=== PATIENT | male | born 1955 | race Caucasian/White ===

== ENCOUNTER 2016-11-27 15:08 | Inpatient (IN) | payer OTHER ==
[~2016-11-27] VITALS: Ht 193 cm; Wt 103.0 kg
[~2016-11-27 15:08] MED LIST: BISA-57 PO; BISA5TAB6 PO; CHOL2000 PO; CLON-412 PO; CLON1TAB3 PO; DICL50TA2 PO; DOXA2TAB61 PO; INSU100I14 SQ; INSU100V19 SQ; LEVO100T87 PO; METH-378 PO; PENT400T2 PO; SIMV20TA PO; SSD1C20 TOP; ZOLP10TA PO
[2016-11-27 16:57] VITALS: Ht 193 cm; Wt 103.0 kg
[2016-11-27] MEDS ORDERED: DEXTROSE 50% 50 ML SYRINGE IV PRN ×2 (19:00)
[2016-11-27] MEDS ORDERED: MAGNESIUM HYDROXIDE 30ML CUP PO PRN (19:00)
[2016-11-27] MEDS ORDERED: NACL 0.9% 3 ML SYG IV SCH (19:00)
[2016-11-27] MEDS ORDERED: BISACODYL (EC) 5 MG TAB PO PRN (19:00)
[2016-11-27] MEDS ORDERED: clonAZEPAM 0.5 MG TAB PO PRN (19:00)
[2016-11-27] MEDS ORDERED: DOCUSATE SODIUM 100 MG CAP PO PRN (19:00)
[2016-11-27] MEDS ORDERED: ACETAMINOPHEN 325 MG TAB PO PRN (19:00)
[2016-11-27] MEDS ORDERED: GLUCOSE GEL 15 GRAM TUBE PO PRN ×2 (19:00)
[2016-11-27] MEDS ORDERED: GLUCAGON 1 MG INJ IM PRN (19:00)
[2016-11-27] MEDS ORDERED: GLUCOSE GEL 15 GRAM TUBE BUCCAL PRN (19:00)
--- NOTE | 2016-11-27 19:02 | HP ---
Date/Time of Note Date/Time of Note DATE: 11/27/16 TIME: 18:59 Assessment/Plan VTE Prophylaxis VTE Prophylaxis Intervention: SCD's Assessment/Plan Assessment/Plan 61 yo M with poorly controlled DM2, suspect PVD admitted for R TMA stump wound, concern for abscess v cellulitis PLAN empiric SSTI abx with vanc/ancef imaging of foot to eval for abscess podiatry to see tomorrow, likely I and D cont home insulin cont home pain meds DVT prophx HPI/ROS Admit Date/Time Admit Date/Time Nov 27, 2016 at 15:47 Hx of Present Illness 61 yo M with pmhx PVD, DM2 with poor control, chronic pain directly admitted from wound care clinic for concern about R TMA site infection. Pt states that since his TMA last year he's been noticing occ drainage from a small "hole" at his surgical site. For the past week however he's been having more pain and swelling from his TMA site. Pt went to wound clinic today and open winder was alarmed by degree of erythema thus patient was admitted. 10pROS neg except as per HPI PMH/Family/Social Past Medical History as per HPI also sp L BKA Social History wheelchair bound Smoking Status: Current some day smoker Exam/Review of Systems Exam Exam nad ,pleasnt MMM EOMI rrr no mrg lungs clear abd soft L BKA site with well healed stump R TMA: surgical incision site well healed but on inferior surface there is a 4 cm area of induration and fluctuance with a tiny aperture, adjacent to this is a second area of induration ~2cm in diameter. Mild erythema noted to sup stump with some streaking up to ankle Medications Medications Current Medications Acetaminophen (Tylenol Tab) 650 mg Q6H PRN PO PAIN LEVEL 1-3 OR FEVER; Start at 19:00 Acetaminophen/ Hydrocodone Bitart ([place] (5/325)) 1 tab Q6H PRN PO MODERATE PAIN LEVEL 4-6; Start 11/27/16 at 19:00 Docusate Sodium (Colace) 100 mg Q12H PRN PO CONSTIPATION; Start 11/27/16 at 19: 00 Magnesium Hydroxide (Milk Of Mag) 30 ml DAILY PRN PO CONSTIPATION; Start at 19:00 Enoxaparin Sodium (Lovenox) 40 mg DAILY SC ; Start 11/28/16 at 09:00 Bisacodyl (Dulcolax) 5 mg DAILY PO ; Start 11/28/16 at 09:00 Bisacodyl (Dulcolax) 10 mg DAILY PRN PO CONSTIPATION; Start 11/27/16 at 19:00 Cholecalciferol (Vitamin D) 2,000 unit DAILY PO ; Start 11/28/16 at 09:00 Clonazepam (Klonopin) 1 mg Q8H PRN PO ANXIETY; Start 11/27/16 at 19:00 Clonazepam (Klonopin) 1 mg TID PO ; Start 11/27/16 at 21:00 Doxazosin Mesylate (Cardura) 2 mg DAILY PO ; Start 11/28/16 at 09:00 Levothyroxine Sodium (Synthroid) 100 mcg DAILY@06 PO ; Start 11/28/16 at 06:00 Methadone HCl (Methadone) 10 mg QID PO ; Start 11/27/16 at 21:00 Pentoxifylline (Trental) 400 mg TID PO ; Start 11/27/16 at 21:00 Silver Sulfadiazine (Thermazene 1% 25 Gm) 1 applic BID TOP ; Start 11/27/16 at 21:00 Zolpidem Tartrate (Ambien) 10 mg HS PRN PO insominia; Start 11/27/16 at 19:00 Atorvastatin Calcium (Lipitor) 10 mg DAILY PO ; Start 11/28/16 at 09:00 Insulin Glargine (Lantus) 45 unit HS SC ; Start 11/27/16 at 21:00 Diagnostic Test (Pha) (Accu-Chek) 1 ea 02 XX ; Start 11/28/16 at 02:00 Miscellaneous Information 1 ea NOTE XX ; Start 11/27/16 at 19:00 Glucose (Glutose) 15 gm Q15M PRN PO DECREASED GLUCOSE; Start 11/27/16 at 19:00 Glucose (Glutose) 22.5 gm Q15M PRN PO DECREASED GLUCOSE; Start 11/27/16 at 19: 00 Dextrose (D50w Syringe) 25 ml Q15M PRN IV DECREASED GLUCOSE; Start 11/27/16 at 19:00 Dextrose (D50w Syringe) 50 ml Q15M PRN IV DECREASED GLUCOSE; Start 11/27/16 at 19:00 Glucagon (Glucagen) 1 mg Q15M PRN IM DECREASED GLUCOSE; Start 11/27/16 at 19:00 Glucose (Glutose) 15 gm Q15M PRN BUCCAL DECREASED GLUCOSE; Start 11/27/16 at 19 :00 MICHAEL SMITH MD Nov 27, 2016 19:02
[2016-11-27] MEDS ORDERED: VANCOMYCIN IV PER PHARMACY XX SCH (19:30)
[2016-11-27 20:06] LABS: CREATININE 0.85 mg/dl (0.61-1.24)
[2016-11-27 20:41] VITALS: BP 137/63; RESP 18
--- NOTE | 2016-11-27 20:58 | RADRPT ---
PROCEDURE: XR Right Foot. CLINICAL INDICATION: Right foot pain. TECHNIQUE: Three views. Frontal, lateral, and oblique. COMPARISON: 07/27/2015. FINDINGS: As seen previously, there has been amputation through the proximal metatarsals. There is no fractur e or dislocation. There is diffuse osteopenia. The soft tissues are normal. Articular surfaces are intact. There is no lytic or blastic lesion. There is no radiopaque foreign body. IMPRESSION: 1. Previous transmetatarsal amputation. 2. Diffuse osteopenia. 3. No lytic lesion to suggest osteomyelitis. RPTAT: QQ .Rigo Patel MD, MD Date Time Electronically viewed and signed by .Rigo Patel MD, MD on 11/27/2016 20:58 .R/
[2016-11-27] MEDS ORDERED: INSULIN GLARGINE [LANtus] 3 ML PEN SC SCH (21:00)
[2016-11-27] MEDS: CEFAZOLIN 1 GM/50 ML (PMX) 50 ML IVPB SCH (21:16)
[2016-11-27] MEDS: clonAZEPAM 0.5 MG TAB PO SCH (21:16)
[2016-11-27] MEDS: METHADONE 10 MG TAB PO SCH (21:17)
[2016-11-27] MEDS: SILVER SULFADIAZINE 1% 25 GM CR TOP SCH (21:17)
[2016-11-27] MEDS: PENTOXIFYLLINE (SR) 400 MG TAB PO SCH (21:17)
[2016-11-27] MEDS: INSULIN GLARGINE [LANtus] 3 ML PEN SC SCH (21:21)
[2016-11-27] MEDS: INSULIN ASPART [NOVOLOG] 3 ML PEN SC SCH (21:22)
[2016-11-27] MEDS: ZOLPIDEM 5 MG TAB PO PRN (21:27)
[2016-11-27] MEDS ORDERED: VANCOMYCIN 2 GM in SOD CHLORIDE 0.9% 500 ML IVPB ONE (22:00)
[2016-11-28] MEDS: ACCU-CHEK XX SCH (02:00)
[2016-11-28 05:15] LABS: ADD SCAN DIFF NO
[2016-11-28 05:16] LABS: BASOPHILS % 0.1 % (0.0-2.0); EOSINOPHILS # 0.1 10^3/ul (0.0-0.5); EOSINOPHILS % 0.6 % (0.0-7.0); HEMATOCRIT 30.3 % (42.0-52.0); HEMOGLOBIN 10.4 g/dl (14.0-18.0); LYMPHOCYTES # 1.5 10^3/ul (0.8-2.9); MEAN CORPUSCULAR HEMOGLOBIN 29.1 pg (29.0-33.0); MEAN CORPUSCULAR HGB CONC 34.3 g/dl (32.0-37.0); MEAN CORPUSCULAR VOLUME 84.9 fl (82.0-101.0); MEAN PLATELET VOLUME 10.3 fl (7.4-10.4); MONOCYTE # 0.8 10^3/ul (0.3-0.9); MONOCYTES % 10.1 % (0.0-11.0); NEUTROPHIL # 5.8 10^3/ul (1.6-7.5); NEUTROPHILS % 70.7 % (39.0-77.0); PLATELET COUNT 186 10^3/UL (140-415); RED BLOOD COUNT 3.57 10^6/ul (4.70-6.10); RED CELL DISTRIBUTION WIDTH 13.9 % (11.5-14.5); WHITE BLOOD COUNT 8.2 10^3/ul (4.8-10.8)
[2016-11-28] MEDS: LEVOTHYROXINE 100 MCG TAB PO SCH (05:40)
[2016-11-28] MEDS: CEFAZOLIN 1 GM/50 ML (PMX) 50 ML IVPB SCH ×3 (05:41→22:39)
[2016-11-28 05:57] LABS: CREATININE 0.85 mg/dl (0.61-1.24); POTASSIUM 3.8 mmol/L (3.5-5.1)
[2016-11-28 08:00] VITALS: BP 133/62; RESP 20
[2016-11-28] MEDS: INSULIN ASPART [NOVOLOG] 3 ML PEN SC SCH ×4 (08:00→22:51)
[2016-11-28] MEDS: DOXAZOSIN 2 MG TAB PO SCH (08:45)
[2016-11-28] MEDS: clonAZEPAM 0.5 MG TAB PO SCH ×3 (08:47→21:53)
[2016-11-28] MEDS: ATORVASTATIN 10 MG TAB PO SCH (08:47)
[2016-11-28] MEDS: BISACODYL (EC) 5 MG TAB PO SCH (08:47)
[2016-11-28] MEDS: METHADONE 10 MG TAB PO SCH ×4 (08:47→22:44)
[2016-11-28] MEDS: SILVER SULFADIAZINE 1% 25 GM CR TOP SCH ×2 (08:48→22:40)
[2016-11-28] MEDS: CHOLECALCIFEROL 2,000 UNIT CAP PO SCH (08:48)
[2016-11-28] MEDS: PENTOXIFYLLINE (SR) 400 MG TAB PO SCH ×3 (08:48→22:51)
[2016-11-28] MEDS: ENOXAPARIN 40 MG/0.4 ML SYG SC SCH (08:51)
[2016-11-28] MEDS: VANCOMYCIN 1.5 GM in SOD CHLORIDE 0.9% 250 ML IVPB SCH (09:33)
[2016-11-28] MEDS: ZOLPIDEM 5 MG TAB PO PRN (21:53)
--- NOTE | 2016-11-28 22:18 | PN ---
Date/Time of Note Date/Time of Note DATE: 11/28/16 TIME: 22:15 Assessment/Plan VTE Prophylaxis VTE Prophylaxis Intervention: LMWH Lines/Catheters IV Catheter Type (from Nrs): Saline Lock Urinary Cath still in place: No Assessment/Plan Assessment/Plan 1. Right TMA stump infection concerned about celllultis vs abscess 2. PVD 3.Type II DM Plan L IV abx ancef/vancomycin Podiatry to see pt cont home insulin including lantus cont home pain meds DVT prophx with lovenox will follow up Subjective 24 Hr Interval Summary Free Text/Dictation pain controlled, Podiatry consulted on case Exam/Review of Systems Vital Signs Vitals Vital Signs Date Time Temp Pulse Resp B/P Pulse Ox O2 Delivery O2 Flow Rate FiO2 11/28/16 08:00 97.8 20 133/62 98 11/27/16 20:41 84 Intake and Output 11/27/16 11/27/16 11/28/16 15:00 23:00 07:00 Intake Total 50 ml 1310 ml Output Total 1300 ml Balance 50 ml 10 ml Exam nad ,pleasnt MMM EOMI rrr no mrg lungs clear abd soft L BKA site with well healed stump R TMA: surgical incision site well healed but on inferior surface there is a 4 cm area of induration and fluctuance with a tiny aperture, adjacent to this is a second area of induration ~2cm in diameter. Mild erythema noted to sup stump with some streaking up to ankle Results Result Diagram: 11/28/16 0445 11/28/16 0445 Results 24 hrs Laboratory Tests Test 11/28/16 02:12 11/28/16 04:45 11/28/16 08:41 11/28/16 12:01 Bedside Glucose 200 99 206 White Blood Count 8.2 # Red Blood Count 3.57 L Hemoglobin 10.4 L Hematocrit 30.3 L Mean Corpuscular Volume 84.9 Mean Corpuscular Hemoglobin 29.1 Mean Corpuscular Hemoglobin Concent 34.3 Red Cell Distribution Width 13.9 Platelet Count 186 Mean Platelet Volume 10.3 # Neutrophils % 70.7 Lymphocytes % 18.0 Monocytes % 10.1 Eosinophils % 0.6 Basophils % 0.1 Nucleated Red Blood Cells % 0.0 Neutrophils # 5.8 Lymphocytes # 1.5 Monocytes # 0.8 Eosinophils # 0.1 Basophils # 0.0 Nucleated Red Blood Cells # 0.0 Sodium Level 140 Potassium Level 3.8 Chloride Level 105 Carbon Dioxide Level 26 Anion Gap 13 Blood Urea Nitrogen 16 Creatinine 0.85 Glucose Level 140 Calcium Level 9.0 Test 11/28/16 17:34 Bedside Glucose 274 H Medications Medications Current Medications Acetaminophen (Tylenol Tab) 650 mg Q6H PRN PO PAIN LEVEL 1-3 OR FEVER; Start at 19:00 Acetaminophen/ Hydrocodone Bitart ([place] (5/325)) 1 tab Q6H PRN PO MODERATE PAIN LEVEL 4-6; Start 11/27/16 at 19:00 Docusate Sodium (Colace) 100 mg Q12H PRN PO CONSTIPATION; Start 11/27/16 at 19: 00 Magnesium Hydroxide (Milk Of Mag) 30 ml DAILY PRN PO CONSTIPATION; Start at 19:00 Enoxaparin Sodium (Lovenox) 40 mg DAILY SC Last administered on 11/28/16 08:51 ; Admin Dose 40 MG; Start 11/28/16 at 09:00 Bisacodyl (Dulcolax) 5 mg DAILY PO ; Start 11/28/16 at 09:00 Bisacodyl (Dulcolax) 10 mg DAILY PRN PO CONSTIPATION; Start 11/27/16 at 19:00 Cholecalciferol (Vitamin D) 2,000 unit DAILY PO Last administered on 11/28/16 08:48; Admin Dose 2,000 UNIT; Start 11/28/16 at 09:00 Clonazepam (Klonopin) 1 mg Q8H PRN PO ANXIETY Last administered on 11/27/16 22 :59; Admin Dose 1 MG; Start 11/27/16 at 19:00 Clonazepam (Klonopin) 1 mg TID PO Last administered on 11/28/16 21:53; Admin Dose 1 MG; Start 11/27/16 at 21:00 Doxazosin Mesylate (Cardura) 2 mg DAILY PO Last administered on 11/28/16 08:45 ; Admin Dose 2 MG; Start 11/28/16 at 09:00 Levothyroxine Sodium (Synthroid) 100 mcg DAILY@06 PO Last administered on 05:40; Admin Dose 100 MCG; Start 11/28/16 at 06:00 Methadone HCl (Methadone) 10 mg QID PO Last administered on 11/28/16 17:36; Admin Dose 10 MG; Start 11/27/16 at 21:00 Pentoxifylline (Trental) 400 mg TID PO Last administered on 11/28/16 12:11; Admin Dose 400 MG; Start 11/27/16 at 21:00 Silver Sulfadiazine (Thermazene 1% 25 Gm) 1 applic BID TOP Last administered on 11/27/16 21:17; Admin Dose 1 APPLIC; Start 11/27/16 at 21:00 Zolpidem Tartrate (Ambien) 10 mg HS PRN PO insominia Last administered on 21:53; Admin Dose 10 MG; Start 11/27/16 at 19:00 Atorvastatin Calcium (Lipitor) 10 mg DAILY PO Last administered on 11/28/16 08 :47; Admin Dose 10 MG; Start 11/28/16 at 09:00 Insulin Glargine (Lantus) 45 unit HS SC Last administered on 11/27/16 21:21; Admin Dose 45 UNIT; Start 11/27/16 at 21:00 Diagnostic Test (Pha) (Accu-Chek) 1 ea 02 XX ; Start 11/28/16 at 02:00 Miscellaneous Information 1 ea NOTE XX ; Start 11/27/16 at 19:00 Glucose (Glutose) 15 gm Q15M PRN PO DECREASED GLUCOSE; Start 11/27/16 at 19:00 Glucose (Glutose) 22.5 gm Q15M PRN PO DECREASED GLUCOSE; Start 11/27/16 at 19: 00 Dextrose (D50w Syringe) 25 ml Q15M PRN IV DECREASED GLUCOSE; Start 11/27/16 at 19:00 Dextrose (D50w Syringe) 50 ml Q15M PRN IV DECREASED GLUCOSE; Start 11/27/16 at 19:00 Glucagon (Glucagen) 1 mg Q15M PRN IM DECREASED GLUCOSE; Start 11/27/16 at 19:00 Glucose 15 gm 15 gm Q15M PRN BUCCAL DECREASED GLUCOSE; Start 11/27/16 at 19:00 Cefazolin Sodium 50 ml @ 100 mls/hr Q8 IVPB Last administered on 11/28/16 14: 16; Admin Dose 100 MLS/HR; Start 11/27/16 at 20:00 Vancomycin HCl/ Sodium Chloride (Vancocin/NS) 250 ml @ 83.333 mls/ hr Q12H IVPB Last administered on 11/28/16t 09:33; Admin Dose 83.333 MLS/HR; Start at 10:00 Miscellaneous Information (*Rx Drug Level Order Reminder*) 1 ONCE ONCE XX ; Start 11/29/16 at 09:00; Stop 11/29/16 at 09:01 RANJEET MONAE MD Nov 28, 2016 22:18
[2016-11-28] MEDS: INSULIN GLARGINE [LANtus] 3 ML PEN SC SCH (22:42)
[2016-11-28 22:52] VITALS: BP 149/71; RESP 18
--- NOTE | 2016-11-28 22:52 | CONS ---
Date/Time of Note Date/Time of Note DATE: 11/28/16 TIME: 22:52 Assessment/Plan Assessment/Plan Problems: (1) Cellulitis Status: Acute (2) Pain of right leg Status: Acute (3) Non-pressure chronic ulcer of other part of right foot with fat layer exposed (4) Abscess of right foot (5) Status post below knee amputation of left lower extremity (6) Wheelchair bound (7) Acquired absence of right foot Additional Assessment/Plan 1. Continue IVAbx 2. Dressing change daily 3. Non weightbearing right foot 4. Patient will be monitored 5. May require incision and drainage Prognosis guarded; close monitoring Consultation Date/Type/Reason Admit Date/Time Nov 27, 2016 at 15:47 Date of Consultation: Nov 28, 2016 Type of Consultation: Foot and ankle surgery Reason for Consultation Right foot abscess with cellulitis Hx of Present Illness This is a pleasant 61 yo male patient with multiple medical problems including PVD, DM2 with poor control, chronic pain, s/p TMA of right foot, s/p BKA of the left foot, severe b/l knee contractures who is seen regularly at the [facility] for chronic open wound of his right foot. He presented to clinic with redness, pain, swelling and new open wound of his right foot. He was evaluated and was found to have infection of his right foot with abscess and cellulitis. Recommendation was made for patient to be admitted to the hospital for IVABx and possible surgery. Patient reports that he has been having increase in his pain for the last week. Patient denies fever and chills today. Patient is currently on IVAbx and reports feeling better since his admission. Constitutional: improved, no complaints Eyes: no complaints ENT: no complaints Respiratory: no complaints Cardiovascular: no complaints Gastrointestinal: no complaints Genitourinary: no complaints Skin: other (contracted lower extremity bilaterally; wheelchair bound) Past Medical History as per hpi Past Surgical History as per hpi Social History as per hpi Smoking Status: Current some day smoker Exam/Review of Systems Vital Signs Vitals Vital Signs Date Time Temp Pulse Resp B/P Pulse Ox O2 Delivery O2 Flow Rate FiO2 11/28/16 08:00 97.8 20 133/62 98 11/27/16 20:41 84 Intake and Output 11/27/16 11/27/16 11/28/16 15:00 23:00 07:00 Intake Total 50 ml 1310 ml Output Total 1300 ml Balance 50 ml 10 ml Exam GENERAL: patient is in no acute distress, laying supine in bed; contracted at the knees and hips VASC: DP and PT pulses weak right foot; s/p TMA of the right foot and BKA of the left LE NEURO: sensation is decreased to sharp, dull, vibratory and temperature stimuli ; abnormal DTRs noted right LE DERM: open wound plantar right foot with surrounding erythema and fluctuance; purulent drainage noted; there is malodor; there is tenderness to palpation; there proximal streaking noted to the ankle level ORTHO: s/p TMA of right foot; s/p BKA of the LLE; TTP right foot Labs reviewed Imaging reviewed Results Result Diagram: 11/28/16 0445 11/28/16 0445 Results 24 hrs Laboratory Tests Test 11/28/16 02:12 11/28/16 04:45 11/28/16 08:41 11/28/16 12:01 Bedside Glucose 200 99 206 White Blood Count 8.2 # Red Blood Count 3.57 L Hemoglobin 10.4 L Hematocrit 30.3 L Mean Corpuscular Volume 84.9 Mean Corpuscular Hemoglobin 29.1 Mean Corpuscular Hemoglobin Concent 34.3 Red Cell Distribution Width 13.9 Platelet Count 186 Mean Platelet Volume 10.3 # Neutrophils % 70.7 Lymphocytes % 18.0 Monocytes % 10.1 Eosinophils % 0.6 Basophils % 0.1 Nucleated Red Blood Cells % 0.0 Neutrophils # 5.8 Lymphocytes # 1.5 Monocytes # 0.8 Eosinophils # 0.1 Basophils # 0.0 Nucleated Red Blood Cells # 0.0 Sodium Level 140 Potassium Level 3.8 Chloride Level 105 Carbon Dioxide Level 26 Anion Gap 13 Blood Urea Nitrogen 16 Creatinine 0.85 Glucose Level 140 Calcium Level 9.0 Test 11/28/16 17:34 11/28/16 22:29 Bedside Glucose 274 H 317 H Medications Medications Current Medications Acetaminophen (Tylenol Tab) 650 mg Q6H PRN PO PAIN LEVEL 1-3 OR FEVER; Start at 19:00 Acetaminophen/ Hydrocodone Bitart ([place] (5/325)) 1 tab Q6H PRN PO MODERATE PAIN LEVEL 4-6; Start 11/27/16 at 19:00 Docusate Sodium (Colace) 100 mg Q12H PRN PO CONSTIPATION; Start 11/27/16 at 19: 00 Magnesium Hydroxide (Milk Of Mag) 30 ml DAILY PRN PO CONSTIPATION; Start at 19:00 Enoxaparin Sodium (Lovenox) 40 mg DAILY SC Last administered on 11/28/16 08:51 ; Admin Dose 40 MG; Start 11/28/16 at 09:00 Bisacodyl (Dulcolax) 5 mg DAILY PO ; Start 11/28/16 at 09:00 Bisacodyl (Dulcolax) 10 mg DAILY PRN PO CONSTIPATION; Start 11/27/16 at 19:00 Cholecalciferol (Vitamin D) 2,000 unit DAILY PO Last administered on 11/28/16 08:48; Admin Dose 2,000 UNIT; Start 11/28/16 at 09:00 Clonazepam (Klonopin) 1 mg Q8H PRN PO ANXIETY Last administered on 11/27/16 22 :59; Admin Dose 1 MG; Start 11/27/16 at 19:00 Clonazepam (Klonopin) 1 mg TID PO Last administered on 11/28/16 21:53; Admin Dose 1 MG; Start 11/27/16 at 21:00 Doxazosin Mesylate (Cardura) 2 mg DAILY PO Last administered on 11/28/16 08:45 ; Admin Dose 2 MG; Start 11/28/16 at 09:00 Levothyroxine Sodium (Synthroid) 100 mcg DAILY@06 PO Last administered on 05:40; Admin Dose 100 MCG; Start 11/28/16 at 06:00 Methadone HCl (Methadone) 10 mg QID PO Last administered on 11/28/16 22:44; Admin Dose 10 MG; Start 11/27/16 at 21:00 Pentoxifylline (Trental) 400 mg TID PO Last administered on 11/28/16 12:11; Admin Dose 400 MG; Start 11/27/16 at 21:00 Silver Sulfadiazine (Thermazene 1% 25 Gm) 1 applic BID TOP Last administered on 11/28/16 22:40; Admin Dose 1 APPLIC; Start 11/27/16 at 21:00 Zolpidem Tartrate (Ambien) 10 mg HS PRN PO insominia Last administered on 6/29/ 17at 21:53; Admin Dose 10 MG; Start 11/27/16 at 19:00 Atorvastatin Calcium (Lipitor) 10 mg DAILY PO Last administered on 11/28/16 08 :47; Admin Dose 10 MG; Start 11/28/16 at 09:00 Insulin Glargine (Lantus) 45 unit HS SC Last administered on 11/28/16 22:42; Admin Dose 45 UNIT; Start 11/27/16 at 21:00 Diagnostic Test (Pha) (Accu-Chek) 1 ea 02 XX ; Start 11/28/16 at 02:00 Miscellaneous Information 1 ea NOTE XX ; Start 11/27/16 at 19:00 Glucose (Glutose) 15 gm Q15M PRN PO DECREASED GLUCOSE; Start 11/27/16 at 19:00 Glucose (Glutose) 22.5 gm Q15M PRN PO DECREASED GLUCOSE; Start 11/27/16 at 19: 00 Dextrose (D50w Syringe) 25 ml Q15M PRN IV DECREASED GLUCOSE; Start 11/27/16 at 19:00 Dextrose (D50w Syringe) 50 ml Q15M PRN IV DECREASED GLUCOSE; Start 11/27/16 at 19:00 Glucagon (Glucagen) 1 mg Q15M PRN IM DECREASED GLUCOSE; Start 11/27/16 at 19:00 Glucose 15 gm 15 gm Q15M PRN BUCCAL DECREASED GLUCOSE; Start 11/27/16 at 19:00 Cefazolin Sodium 50 ml @ 100 mls/hr Q8 IVPB Last administered on 11/28/16 22: 39; Admin Dose 100 MLS/HR; Start 11/27/16 at 20:00 Vancomycin HCl/ Sodium Chloride (Vancocin/NS) 250 ml @ 83.333 mls/ hr Q12H IVPB Last administered on 11/28/16 09:33; Admin Dose 83.333 MLS/HR; Start at 10:00 Miscellaneous Information (*Rx Drug Level Order Reminder*) 1 ONCE ONCE XX ; Start 11/29/16 at 09:00; Stop 11/29/16 at 09:01 GIOVANNA ALEJANDRO DPM Nov 28, 2016 22:52
[2016-11-29] MEDS: VANCOMYCIN 1.5 GM in SOD CHLORIDE 0.9% 250 ML IVPB SCH ×2 (00:09→11:01)
[2016-11-29] MEDS: ACCU-CHEK XX SCH (01:41)
[2016-11-29] MEDS ORDERED: INSULIN ASPART [NOVOLOG] 3 ML PEN SC ONE (02:00)
[2016-11-29] MEDS: CEFAZOLIN 1 GM/50 ML (PMX) 50 ML IVPB SCH ×3 (05:41→21:45)
[2016-11-29] MEDS: LEVOTHYROXINE 100 MCG TAB PO SCH (05:41)
[2016-11-29] MEDS: HYDROCODONE/APAP (5/325) TAB PO PRN (05:45)
[2016-11-29] MEDS: INSULIN ASPART [NOVOLOG] 3 ML PEN SC SCH ×5 (08:00→21:50)
[2016-11-29 08:47] VITALS: BP 120/56; RESP 17
[2016-11-29] MEDS: BISACODYL (EC) 5 MG TAB PO SCH ×2 (09:00→09:05)
[2016-11-29] MEDS: clonAZEPAM 0.5 MG TAB PO SCH ×4 (09:00→21:46)
[2016-11-29] MEDS: CHOLECALCIFEROL 2,000 UNIT CAP PO SCH (09:04)
[2016-11-29] MEDS: DOXAZOSIN 2 MG TAB PO SCH (09:05)
[2016-11-29] MEDS: ATORVASTATIN 10 MG TAB PO SCH (09:05)
[2016-11-29] MEDS: METHADONE 10 MG TAB PO SCH ×4 (09:05→21:47)
[2016-11-29] MEDS: PENTOXIFYLLINE (SR) 400 MG TAB PO SCH ×3 (09:06→21:45)
[2016-11-29] MEDS: ENOXAPARIN 40 MG/0.4 ML SYG SC SCH (09:08)
[2016-11-29] MEDS: SILVER SULFADIAZINE 1% 25 GM CR TOP SCH ×2 (09:09→21:55)
--- NOTE | 2016-11-29 09:25 | PN ---
Date/Time of Note Date/Time of Note DATE: 11/29/16 TIME: 09:23 Assessment/Plan VTE Prophylaxis VTE Prophylaxis Intervention: LMWH Lines/Catheters IV Catheter Type (from Nrsg): Saline Lock Urinary Cath still in place: No Assessment/Plan Assessment/Plan 1. Right TMA stump infection concerned about celllultis vs abscess 2. PVD 3.Type II DM,Insulin dependant 4. Hypoglycemia with BS down to 62 Plan L IV abx ancef/vancomycin Podiatry evaluated pt, plan for I & D As per podiatry cont home insulin including lantus- BS drops to62 today am < will cut down to Lantus to 30 units and Nurse is advised to cut down to mild sliding scale cont home pain meds DVT prophx with lovenox will follow up Subjective 24 Hr Interval Summary Free Text/Dictation BS drops to 62 at 8am, pt asymptomatic, BP stable, pt was given lantus 45 units at night and 4 units Novolog at 2 am Exam/Review of Systems Vital Signs Vitals Vital Signs Date Time Temp Pulse Resp B/P Pulse Ox O2 Delivery O2 Flow Rate FiO2 11/29/16 08:47 98.0 60 17 120/56 95 Intake and Output 11/28/16 11/28/16 11/29/16 15:00 23:00 07:00 Intake Total 300 ml 840 ml 1270 ml Output Total 790 ml 1380 ml Balance 300 ml 50 ml -110 ml Exam nad ,pleasnt MMM EOMI rrr no mrg lungs clear abd soft L BKA site with well healed stump R TMA: surgical incision site well healed but on inferior surface there is a 4 cm area of induration and fluctuance with a tiny aperture, adjacent to this is a second area of induration ~2cm in diameter. Mild erythema noted to sup stump with some streaking up to ankle Results Result Diagram: 11/28/16 0445 11/28/16 0445 Results 24 hrs Laboratory Tests Test 11/28/16 12:01 11/28/16 17:34 11/28/16 22:29 11/29/16 01:43 Bedside Glucose 206 274 H 317 H 268 H Test 11/29/16 08:15 11/29/16 08:31 11/29/16 09:02 Bedside Glucose 62 L 93 161 Medications Medications Current Medications Acetaminophen (Tylenol Tab) 650 mg Q6H PRN PO PAIN LEVEL 1-3 OR FEVER; Start at 19:00 Acetaminophen/ Hydrocodone Bitart ([place] (5/325)) 1 tab Q6H PRN PO MODERATE PAIN LEVEL 4-6 Last administered on 11/29/16 05:45; Admin Dose 1 TAB; Start at 19:00 Docusate Sodium (Colace) 100 mg Q12H PRN PO CONSTIPATION; Start 11/27/16 at 19: 00 Magnesium Hydroxide (Milk Of Mag) 30 ml DAILY PRN PO CONSTIPATION; Start at 19:00 Enoxaparin Sodium (Lovenox) 40 mg DAILY SC Last administered on 11/29/16 09:08 ; Admin Dose 40 MG; Start 11/28/16 at 09:00 Bisacodyl (Dulcolax) 5 mg DAILY PO ; Start 11/28/16 at 09:00 Bisacodyl (Dulcolax) 10 mg DAILY PRN PO CONSTIPATION; Start 11/27/16 at 19:00 Cholecalciferol (Vitamin D) 2,000 unit DAILY PO Last administered on 11/29/16 09:04; Admin Dose 2,000 UNIT; Start 11/28/16 at 09:00 Clonazepam (Klonopin) 1 mg Q8H PRN PO ANXIETY Last administered on 11/27/16 22 :59; Admin Dose 1 MG; Start 11/27/16 at 19:00 Clonazepam (Klonopin) 1 mg TID PO Last administered on 11/28/16 21:53; Admin Dose 1 MG; Start 11/27/16 at 21:00 Doxazosin Mesylate (Cardura) 2 mg DAILY PO Last administered on 11/29/16 09:05 ; Admin Dose 2 MG; Start 11/28/16 at 09:00 Levothyroxine Sodium (Synthroid) 100 mcg DAILY@06 PO Last administered on 05:41; Admin Dose 100 MCG; Start 11/28/16 at 06:00 Methadone HCl (Methadone) 10 mg QID PO Last administered on 11/29/16 09:05; Admin Dose 10 MG; Start 11/27/16 at 21:00 Pentoxifylline (Trental) 400 mg TID PO Last administered on 11/29/16 09:06; Admin Dose 400 MG; Start 11/27/16 at 21:00 Silver Sulfadiazine (Thermazene 1% 25 Gm) 1 applic BID TOP Last administered on 11/29/16 09:09; Admin Dose 1 APPLIC; Start 11/27/16 at 21:00 Zolpidem Tartrate (Ambien) 10 mg HS PRN PO insominia Last administered on 21:53; Admin Dose 10 MG; Start 11/27/16 at 19:00 Atorvastatin Calcium (Lipitor) 10 mg DAILY PO Last administered on 11/29/16 09 :05; Admin Dose 10 MG; Start 11/28/16 at 09:00 Insulin Glargine (Lantus) 45 unit HS SC Last administered on 11/28/16 22:42; Admin Dose 45 UNIT; Start 11/27/16 at 21:00 Diagnostic Test (Pha) (Accu-Chek) 1 ea 02 XX ; Start 11/28/16 at 02:00 Miscellaneous Information 1 ea NOTE XX ; Start 11/27/16 at 19:00 Glucose (Glutose) 15 gm Q15M PRN PO DECREASED GLUCOSE; Start 11/27/16 at 19:00 Glucose (Glutose) 22.5 gm Q15M PRN PO DECREASED GLUCOSE; Start 11/27/16 at 19: 00 Dextrose (D50w Syringe) 25 ml Q15M PRN IV DECREASED GLUCOSE; Start 11/27/16 at 19:00 Dextrose (D50w Syringe) 50 ml Q15M PRN IV DECREASED GLUCOSE; Start 11/27/16 at 19:00 Glucagon (Glucagen) 1 mg Q15M PRN IM DECREASED GLUCOSE; Start 11/27/16 at 19:00 Glucose 15 gm 15 gm Q15M PRN BUCCAL DECREASED GLUCOSE; Start 11/27/16 at 19:00 Cefazolin Sodium 50 ml @ 100 mls/hr Q8 IVPB Last administered on 11/29/16 05: 41; Admin Dose 100 MLS/HR; Start 11/27/16 at 20:00 Vancomycin HCl/ Sodium Chloride (Vancocin/NS) 250 ml @ 83.333 mls/ hr Q12H IVPB Last administered on 11/29/16 00:09; Admin Dose 83.333 MLS/HR; Start at 10:00 RANJEET MONAE MD Nov 29, 2016 09:25
[2016-11-29] MEDS ORDERED: INSULIN ASPART [NOVOLOG] 3 ML PEN SC SCH (12:00)
[2016-11-29] MEDS: INSULIN GLARGINE [LANtus] 3 ML PEN SC SCH (21:49)
[2016-11-29] MEDS: ZOLPIDEM 5 MG TAB PO PRN (22:44)
[2016-11-29] MEDS: VANCOMYCIN 1.25 GM in SOD CHLORIDE 0.9% 250 ML IVPB SCH (22:44)
[2016-11-29 23:16] VITALS: BP 136/63; RESP 18
[2016-11-30] MEDS: ACCU-CHEK XX SCH (02:00)
[2016-11-30] MEDS: HYDROCODONE/APAP (5/325) TAB PO PRN (04:14)
[2016-11-30] MEDS: LEVOTHYROXINE 100 MCG TAB PO SCH (05:45)
[2016-11-30] MEDS: CEFAZOLIN 1 GM/50 ML (PMX) 50 ML IVPB SCH ×3 (05:45→21:27)
[2016-11-30 06:32] LABS: INR 1.01; PROTIME 13.3 Sec (12.2-14.2)
[2016-11-30 06:33] LABS: PARTIAL THROMBOPLASTIN TIME 22.4 Sec (25.0-35.0)
[2016-11-30 06:34] LABS: ALBUMIN 3.9 g/dl (3.3-4.9); ALBUMIN/GLOBULIN RATIO 1.34; BILIRUBIN,INDIRECT 0.9 mg/dl (0-1.1); BILIRUBIN,TOTAL 0.9 mg/dl (0.2-1.3); CALCIUM 9.2 mg/dl (8.4-10.2); CREATININE 0.88 mg/dl (0.61-1.24); POTASSIUM 4.2 mmol/L (3.5-5.1); TOTAL PROTEIN 6.8 g/dl (6.1-8.1)
[2016-11-30] MEDS: INSULIN ASPART [NOVOLOG] 3 ML PEN SC SCH ×7 (07:59→21:26)
[2016-11-30 08:00] VITALS: BP 126/60; RESP 20
[2016-11-30] MEDS: DOXAZOSIN 2 MG TAB PO SCH (08:04)
[2016-11-30] MEDS: CHOLECALCIFEROL 2,000 UNIT CAP PO SCH (08:04)
[2016-11-30] MEDS: METHADONE 10 MG TAB PO SCH ×4 (08:04→21:25)
[2016-11-30] MEDS: ATORVASTATIN 10 MG TAB PO SCH (08:04)
[2016-11-30] MEDS: BISACODYL (EC) 5 MG TAB PO SCH (08:04)
[2016-11-30] MEDS: PENTOXIFYLLINE (SR) 400 MG TAB PO SCH ×3 (08:04→21:25)
[2016-11-30] MEDS: ENOXAPARIN 40 MG/0.4 ML SYG SC SCH (08:05)
[2016-11-30] MEDS: clonAZEPAM 0.5 MG TAB PO SCH ×4 (08:05→21:25)
[2016-11-30] MEDS: SILVER SULFADIAZINE 1% 25 GM CR TOP SCH ×3 (08:06→21:36)
[2016-11-30 09:48] LABS: ABNORMAL IP MESSAGE 1; BASOPHILS % 0.3 % (0.0-2.0); EOSINOPHILS # 0.1 10^3/ul (0.0-0.5); EOSINOPHILS % 1.7 % (0.0-7.0); HEMOGLOBIN 11.8 g/dl (14.0-18.0); LYMPHOCYTES # 1.6 10^3/ul (0.8-2.9); LYMPHOCYTES % 25.6 % (15.0-51.0); MEAN CORPUSCULAR HEMOGLOBIN 29.1 pg (29.0-33.0); MEAN CORPUSCULAR HGB CONC 33.7 g/dl (32.0-37.0); MEAN CORPUSCULAR VOLUME 86.4 fl (82.0-101.0); MEAN PLATELET VOLUME 11.4 fl (7.4-10.4); MONOCYTE # 0.5 10^3/ul (0.3-0.9); MONOCYTES % 8.1 % (0.0-11.0); NEUTROPHIL # 3.8 10^3/ul (1.6-7.5); NEUTROPHILS % 62.3 % (39.0-77.0); RED BLOOD COUNT 4.05 10^6/ul (4.70-6.10); RED CELL DISTRIBUTION WIDTH 13.4 % (11.5-14.5); WHITE BLOOD COUNT 6.1 10^3/ul (4.8-10.8)
[2016-11-30 09:52] LABS: PLATELET COUNT 99 10^3/UL (140-415)
[2016-11-30] MEDS: VANCOMYCIN 1.25 GM in SOD CHLORIDE 0.9% 250 ML IVPB SCH ×2 (11:15→23:48)
[2016-11-30 20:53] VITALS: BP 153/70; RESP 18
[2016-11-30] MEDS: INSULIN GLARGINE [LANtus] 3 ML PEN SC SCH (21:26)
[2016-11-30] MEDS: ZOLPIDEM 5 MG TAB PO PRN (21:35)
--- NOTE | 2016-11-30 22:45 | PN ---
Date/Time of Note Date/Time of Note DATE: 11/30/16 TIME: 22:44 Assessment/Plan VTE Prophylaxis VTE Prophylaxis Intervention: LMWH Lines/Catheters IV [facility] Type (from [facility]): Saline Lock Urinary Cath still in place: No Assessment/Plan Assessment/Plan 1. Right TMA stump infection concerned about celllultis vs abscess 2. PVD 3.Type II DM,Insulin dependant 4. Hypoglycemia with BS down to 62 Plan L IV abx ancef/vancomycin Podiatry evaluated pt, plan for I & D As per podiatry on Lantus with sliding scale DVT prophx with lovenox will follow up Exam/Review of Systems Vital Signs Vitals Vital Signs Date Time Temp Pulse Resp B/P Pulse Ox O2 Delivery O2 Flow Rate FiO2 11/30/16 20:53 98.1 83 18 153/70 97 Intake and Output 11/29/16 11/29/16 11/30/16 15:00 23:00 07:00 Intake Total 300 ml 1800 ml 780 ml Output Total 1500 ml 750 ml Balance 300 ml 300 ml 30 ml Exam nad ,pleasnt MMM EOMI rrr no mrg lungs clear abd soft L BKA site with well healed stump R TMA: surgical incision site well healed but on inferior surface there is a 4 cm area of induration and fluctuance with a tiny aperture, adjacent to this is a second area of induration ~2cm in diameter. Mild erythema noted to sup stump with some streaking up to ankle Results Result Diagram: 11/30/16 0531 11/30/16 0531 Results 24 hrs Laboratory Tests Test 11/30/16 02:14 11/30/16 05:31 11/30/16 07:57 11/30/16 11:34 Bedside Glucose 224 H 202 133 White Blood Count 6.1 # Red Blood Count 4.05 L Hemoglobin 11.8 L Hematocrit 35.0 L Mean Corpuscular Volume 86.4 Mean Corpuscular Hemoglobin 29.1 Mean Corpuscular Hemoglobin Concent 33.7 Red Cell Distribution Width 13.4 Platelet Count 99 #L Mean Platelet Volume 11.4 H Neutrophils % 62.3 Lymphocytes % 25.6 Monocytes % 8.1 Eosinophils % 1.7 Basophils % 0.3 Nucleated Red Blood Cells % 0.0 Neutrophils # 3.8 Lymphocytes # 1.6 Monocytes # 0.5 Eosinophils # 0.1 Basophils # 0.0 Nucleated Red Blood Cells # 0.0 Prothrombin Time 13.3 Prothrombin Time Ratio 1.0 INR International Normalized Ratio 1.01 Activated Partial Thromboplast Time 22.4 L Sodium Level 138 Potassium Level 4.2 Chloride Level 98 Carbon Dioxide Level 24 Anion Gap 20 H Blood Urea Nitrogen 16 Creatinine 0.88 Glucose Level 207 Calcium Level 9.2 Total Bilirubin 0.9 Direct Bilirubin 0.00 Indirect Bilirubin 0.9 Aspartate Amino Transf (AST/SGOT) 20 Alanine Aminotransferase (ALT/SGPT) 26 Alkaline Phosphatase 68 Total Protein 6.8 Albumin 3.9 Globulin 2.90 Albumin/Globulin Ratio 1.34 Test 11/30/16 17:28 11/30/16 21:23 Bedside Glucose 73 241 H Medications Medications Current Medications Acetaminophen (Tylenol Tab) 650 mg Q6H PRN PO PAIN LEVEL 1-3 OR FEVER; Start at 19:00 Acetaminophen/ Hydrocodone Bitart ([place] (5/325)) 1 tab Q6H PRN PO MODERATE PAIN LEVEL 4-6 Last administered on 11/30/16 04:14; Admin Dose 1 TAB; Start at 19:00 Docusate Sodium (Colace) 100 mg Q12H PRN PO CONSTIPATION; Start 11/27/16 at 19: 00 Magnesium Hydroxide (Milk Of Mag) 30 ml DAILY PRN PO CONSTIPATION; Start at 19:00 Enoxaparin Sodium (Lovenox) 40 mg DAILY SC Last administered on 11/30/16 08:05 ; Admin Dose 40 MG; Start 11/28/16 at 09:00 Bisacodyl (Dulcolax) 5 mg DAILY PO Last administered on 11/30/16 08:04; Admin Dose 5 MG; Start 11/28/16 at 09:00 Bisacodyl (Dulcolax) 10 mg DAILY PRN PO CONSTIPATION; Start 11/27/16 at 19:00 Cholecalciferol (Vitamin D) 2,000 unit DAILY PO Last administered on 11/30/16 08:04; Admin Dose 2,000 UNIT; Start 11/28/16 at 09:00 Clonazepam (Klonopin) 1 mg Q8H PRN PO ANXIETY Last administered on 11/27/16 22 :59; Admin Dose 1 MG; Start 11/27/16 at 19:00 Clonazepam (Klonopin) 1 mg TID PO Last administered on 11/30/16 21:25; Admin Dose 1 MG; Start 11/27/16 at 21:00 Doxazosin Mesylate (Cardura) 2 mg DAILY PO Last administered on 11/30/16 08:04 ; Admin Dose 2 MG; Start 11/28/16 at 09:00 Levothyroxine Sodium (Synthroid) 100 mcg DAILY@06 PO Last administered on 05:45; Admin Dose 100 MCG; Start 11/28/16 at 06:00 Methadone HCl (Methadone) 10 mg QID PO Last administered on 11/30/16 21:25; Admin Dose 10 MG; Start 11/27/16 at 21:00 Pentoxifylline (Trental) 400 mg TID PO Last administered on 11/30/16 21:25; Admin Dose 400 MG; Start 11/27/16 at 21:00 Silver Sulfadiazine (Thermazene 1% 25 Gm) 1 applic BID TOP Last administered on 11/30/16 21:36; Admin Dose 1 APPLIC; Start 11/27/16 at 21:00 Zolpidem Tartrate (Ambien) 10 mg HS PRN PO insominia Last administered on 21:35; Admin Dose 10 MG; Start 11/27/16 at 19:00 Atorvastatin Calcium (Lipitor) 10 mg DAILY PO Last administered on 11/30/16 08: 04; Admin Dose 10 MG; Start 11/28/16 at 09:00 Miscellaneous Information 1 ea NOTE XX ; Start 11/27/16 at 19:00 Glucose (Glutose) 15 gm Q15M PRN PO DECREASED GLUCOSE; Start 11/27/16 at 19:00 Glucose (Glutose) 22.5 gm Q15M PRN PO DECREASED GLUCOSE; Start 11/27/16 at 19: 00 Dextrose (D50w Syringe) 25 ml Q15M PRN IV DECREASED GLUCOSE; Start 11/27/16 at 19:00 Dextrose (D50w Syringe) 50 ml Q15M PRN IV DECREASED GLUCOSE; Start 11/27/16 at 19:00 Glucagon (Glucagen) 1 mg Q15M PRN IM DECREASED GLUCOSE; Start 11/27/16 at 19:00 Glucose 15 gm 15 gm Q15M PRN BUCCAL DECREASED GLUCOSE; Start 11/27/16 at 19:00 Cefazolin Sodium (Ancef 1 Gm/50 ml (Pmx)) 50 ml @ 100 mls/hr Q8 IVPB Last administered on 11/30/16 21:27; Admin Dose 100 MLS/HR; Start 11/27/16 at 20:00 Insulin Glargine 30 unit 30 unit HS SC Last administered on 11/30/16 21:26; Admin Dose 30 UNIT; Start 11/29/16 at 21:00 Vancomycin HCl/ Sodium Chloride (Vancocin/NS) 250 ml @ 83.333 mls/ hr Q12H IVPB Last administered on 11/30/16 11:15; Admin Dose 83.333 MLS/HR; Start 11/29 at 23:00 Diagnostic Test (Pha) (Accu-Chek) 1 ea 02 XX ; Start 11/30/16 at 02:00 RANJEET MONAE MD Nov 30, 2016 22:45
[2016-12-01] MEDS: ACCU-CHEK XX SCH ×2 (02:00→21:00)
[2016-12-01] MEDS: HYDROCODONE/APAP (5/325) TAB PO PRN ×2 (03:33→23:16)
[2016-12-01] MEDS: CEFAZOLIN 1 GM/50 ML (PMX) 50 ML IVPB SCH (05:42)
[2016-12-01] MEDS: LEVOTHYROXINE 100 MCG TAB PO SCH (05:43)
[2016-12-01] MEDS: INSULIN ASPART [NOVOLOG] 3 ML PEN SC SCH ×7 (07:59→21:00)
[2016-12-01] MEDS: BISACODYL (EC) 5 MG TAB PO SCH (08:07)
[2016-12-01] MEDS: ATORVASTATIN 10 MG TAB PO SCH (08:07)
[2016-12-01] MEDS: METHADONE 10 MG TAB PO SCH ×4 (08:07→20:59)
[2016-12-01] MEDS: PENTOXIFYLLINE (SR) 400 MG TAB PO SCH ×3 (08:07→20:59)
[2016-12-01] MEDS: CHOLECALCIFEROL 2,000 UNIT CAP PO SCH (08:07)
[2016-12-01] MEDS: clonAZEPAM 0.5 MG TAB PO SCH ×3 (08:08→20:59)
[2016-12-01] MEDS: DOXAZOSIN 2 MG TAB PO SCH (08:08)
[2016-12-01] MEDS: SILVER SULFADIAZINE 1% 25 GM CR TOP SCH ×2 (08:08→21:04)
[2016-12-01] MEDS: ENOXAPARIN 40 MG/0.4 ML SYG SC SCH (08:11)
[2016-12-01 08:53] VITALS: BP 124/59; RESP 62
[2016-12-01] MEDS: VANCOMYCIN 1.25 GM in SOD CHLORIDE 0.9% 250 ML IVPB SCH ×2 (11:10→23:14)
--- NOTE | 2016-12-01 15:17 | PN ---
Date/Time of Note Date/Time of Note DATE: 12/01/16 TIME: 15:15 Assessment/Plan VTE Prophylaxis VTE Prophylaxis Intervention: LMWH Lines/Catheters IV Catheter Type (from Nrsg): Saline Lock Urinary Cath still in place: No Assessment/Plan Assessment/Plan 1. Right TMA stump infection concerned about celllultis vs abscess 2. PVD 3.Type II DM,Insulin dependant 4. Hypoglycemia with BS down to 62 Plan L IV abx ancef/vancomycin Podiatry evaluated pt, plan for I & D As per podiatry on Lantus with sliding scale DVT prophx with lovenox will follow up Subjective 24 Hr Interval Summary Free Text/Dictation c/o right foot pain, pain controlled Exam/Review of Systems Vital Signs Vitals Vital Signs Date Time Temp Pulse Resp B/P Pulse Ox O2 Delivery O2 Flow Rate FiO2 12/01/16 08:53 98.0 62 62 124/59 94 Intake and Output 11/30/16 11/30/16 12/01/16 15:00 23:00 07:00 Intake Total 250 ml 100 ml 1030 ml Output Total 1150 ml Balance 250 ml 100 ml -120 ml Exam nad ,pleasnt MMM EOMI rrr no mrg lungs clear abd soft L BKA site with well healed stump R TMA: surgical incision site well healed but on inferior surface there is a 4 cm area of induration and fluctuance with a tiny aperture, adjacent to this is a second area of induration ~2cm in diameter. Mild erythema noted to sup stump with some streaking up to ankle Results Result Diagram: 11/30/16 0531 11/30/16 0531 Results 24 hrs Laboratory Tests Test 11/30/16 17:28 11/30/16 21:23 12/01/16 02:11 12/01/16 07:54 Bedside Glucose 73 241 H 233 H 234 H Test 12/01/16 12:00 Bedside Glucose 105 Medications Medications Current Medications Acetaminophen (Tylenol Tab) 650 mg Q6H PRN PO PAIN LEVEL 1-3 OR FEVER; Start at 19:00 Acetaminophen/ Hydrocodone Bitart ([place] (5/325)) 1 tab Q6H PRN PO MODERATE PAIN LEVEL 4-6 Last administered on 12/01/16t 03:33; Admin Dose 1 TAB; Start at 19:00 Docusate Sodium (Colace) 100 mg Q12H PRN PO CONSTIPATION; Start 11/27/16 at 19: 00 Magnesium Hydroxide (Milk Of Mag) 30 ml DAILY PRN PO CONSTIPATION; Start at 19:00 Enoxaparin Sodium (Lovenox) 40 mg DAILY SC Last administered on 12/01/16 08:11 ; Admin Dose 40 MG; Start 11/28/16 at 09:00 Bisacodyl (Dulcolax) 5 mg DAILY PO Last administered on 12/01/16 08:07; Admin Dose 5 MG; Start 11/28/16 at 09:00 Bisacodyl (Dulcolax) 10 mg DAILY PRN PO CONSTIPATION; Start 11/27/16 at 19:00 Cholecalciferol (Vitamin D) 2,000 unit DAILY PO Last administered on 12/01/16 08:07; Admin Dose 2,000 UNIT; Start 11/28/16 at 09:00 Clonazepam (Klonopin) 1 mg Q8H PRN PO ANXIETY Last administered on 11/27/16 22 :59; Admin Dose 1 MG; Start 11/27/16 at 19:00 Clonazepam (Klonopin) 1 mg TID PO Last administered on 12/01/16 12:45; Admin Dose 1 MG; Start 11/27/16 at 21:00 Doxazosin Mesylate (Cardura) 2 mg DAILY PO Last administered on 12/01/16 08:08 ; Admin Dose 2 MG; Start 11/28/16 at 09:00 Levothyroxine Sodium (Synthroid) 100 mcg DAILY@06 PO Last administered on 05:43; Admin Dose 100 MCG; Start 11/28/16 at 06:00 Methadone HCl (Methadone) 10 mg QID PO Last administered on 12/01/16 12:45; Admin Dose 10 MG; Start 11/27/16 at 21:00 Pentoxifylline (Trental) 400 mg TID PO Last administered on 12/01/16 12:45; Admin Dose 400 MG; Start 11/27/16 at 21:00 Silver Sulfadiazine (Thermazene 1% 25 Gm) 1 applic BID TOP Last administered on 12/01/16 08:08; Admin Dose 1 APPLIC; Start 11/27/16 at 21:00 Zolpidem Tartrate (Ambien) 10 mg HS PRN PO insominia Last administered on 21:35; Admin Dose 10 MG; Start 11/27/16 at 19:00 Atorvastatin Calcium (Lipitor) 10 mg DAILY PO Last administered on 12/01/16 08: 07; Admin Dose 10 MG; Start 11/28/16 at 09:00 Miscellaneous Information 1 ea NOTE XX ; Start 11/27/16 at 19:00 Glucose (Glutose) 15 gm Q15M PRN PO DECREASED GLUCOSE; Start 11/27/16 at 19:00 Glucose (Glutose) 22.5 gm Q15M PRN PO DECREASED GLUCOSE; Start 11/27/16 at 19: 00 Dextrose (D50w Syringe) 25 ml Q15M PRN IV DECREASED GLUCOSE; Start 11/27/16 at 19:00 Dextrose (D50w Syringe) 50 ml Q15M PRN IV DECREASED GLUCOSE; Start 11/27/16 at 19:00 Glucagon (Glucagen) 1 mg Q15M PRN IM DECREASED GLUCOSE; Start 11/27/16 at 19:00 Glucose (Glutose) 15 gm Q15M PRN BUCCAL DECREASED GLUCOSE; Start 11/27/16 at 19 :00 Insulin Glargine 30 unit 30 unit HS SC Last administered on 11/30/16 21:26; Admin Dose 30 UNIT; Start 11/29/16 at 21:00 Vancomycin HCl/ Sodium Chloride (Vancocin/NS) 250 ml @ 83.333 mls/ hr Q12H IVPB Last administered on 12/01/16 11:10; Admin Dose 83.333 MLS/HR; Start 11/29 at 23:00 Diagnostic Test (Pha) (Accu-Chek) 1 ea 02 XX ; Start 11/30/16 at 02:00 Miscellaneous Information (*Rx Drug Level Order Reminder*) VANCOMYCIN TROUGH 12/01 AT 2200 ONCE ONCE XX ; Start 12/01/16 at 22:00; Stop 12/01/16 at 22:01 RANJEET MONAE MD Dec 01, 2016 15:17
[2016-12-01 20:12] VITALS: BP 124/63; RESP 18
[2016-12-01] MEDS: INSULIN GLARGINE [LANtus] 3 ML PEN SC SCH (20:58)
[2016-12-01] MEDS: ZOLPIDEM 5 MG TAB PO PRN (21:34)
--- NOTE | 2016-12-01 23:47 | PN ---
Date/Time of Note Date/Time of Note DATE: 12/01/16 TIME: 23:46 Assessment/Plan Lines/Catheters IV Catheter Type (from Nrs): Saline Lock [place] in Place (from Nrs): No Assessment/Plan Problems: (1) Cellulitis Status: Acute (2) Pain of right leg Status: Acute (3) Non-pressure chronic ulcer of other part of right foot with fat layer exposed (4) Acquired absence of right foot Assessment/Plan Bedside I&D done using aseptic technique. Monitor right foot. Daily dressing change. Will follow patient inhouse. Subjective 24 Hr Interval Summary Patient is seen and examined at bedside; he reports improvement in his condition and reports less pain today; denies fever and chills; denies overnight adverse events. Constitutional: BM, ambulates, flatus, improved, no complaints, urine output Pain Control: well controlled Exam/Review of Systems Vital Signs Vitals Vital Signs Date Time Temp Pulse Resp B/P Pulse Ox O2 Delivery O2 Flow Rate FiO2 12/02/16 19:33 98.2 78 16 126/58 96 Intake and Output 12/02/16 12/02/16 12/03/16 15:00 23:00 07:00 Intake Total 250 ml 1540 ml Output Total 1000 ml Balance 250 ml 540 ml Exam Free Text/Dictation GENERAL: patient was seen at bedside; patient is in no acute distress, laying supine in bed VASC: pedal pulses weakly palpable right foot; s/p TMA right foot; s/p BKA left LE NEURO: sensation decreased to sharp, dull, vibratory and temperature stimuli DERM: open wound plantar right foot with decrease in erythema and decrease in tenderness to exam; there is no malodor today ORTHO: s/p TMA right foot witih BKA left LE; contracted b/l knee joints IMAGING: reviewed LABS: reviewed Results Result Diagram: 12/02/16 0525 12/02/16 0525 GIOVANNA ALEJANDRO DPM Dec 01, 2016 23:46
[2016-12-02] MEDS: HYDROCODONE/APAP (5/325) TAB PO PRN ×3 (05:17→17:27)
[2016-12-02] MEDS: LEVOTHYROXINE 100 MCG TAB PO SCH (05:17)
[2016-12-02 06:13] LABS: EOSINOPHILS # 0.3 10^3/ul (0.0-0.5); EOSINOPHILS % 3.6 % (0.0-7.0); HEMOGLOBIN 11.6 g/dl (14.0-18.0); LYMPHOCYTES # 1.4 10^3/ul (0.8-2.9); LYMPHOCYTES % 20.6 % (15.0-51.0); MEAN CORPUSCULAR HEMOGLOBIN 29.9 pg (29.0-33.0); MEAN CORPUSCULAR HGB CONC 35.2 g/dl (32.0-37.0); MEAN CORPUSCULAR VOLUME 85.1 fl (82.0-101.0); MEAN PLATELET VOLUME 10.1 fl (7.4-10.4); MONOCYTE # 0.6 10^3/ul (0.3-0.9); MONOCYTES % 8.8 % (0.0-11.0); NEUTROPHIL # 4.6 10^3/ul (1.6-7.5); NEUTROPHILS % 66.6 % (39.0-77.0); PLATELET COUNT 213 10^3/UL (140-415); RED BLOOD COUNT 3.88 10^6/ul (4.70-6.10); RED CELL DISTRIBUTION WIDTH 13.3 % (11.5-14.5); WHITE BLOOD COUNT 6.9 10^3/ul (4.8-10.8)
[2016-12-02 08:11] LABS: CREATININE 0.92 mg/dl (0.61-1.24)
[2016-12-02 08:32] VITALS: BP 112/57; RESP 18
[2016-12-02] MEDS: ATORVASTATIN 10 MG TAB PO SCH (08:59)
[2016-12-02] MEDS: CHOLECALCIFEROL 2,000 UNIT CAP PO SCH (08:59)
[2016-12-02] MEDS: PENTOXIFYLLINE (SR) 400 MG TAB PO SCH ×3 (08:59→21:28)
[2016-12-02] MEDS: METHADONE 10 MG TAB PO SCH ×4 (08:59→21:28)
[2016-12-02] MEDS: clonAZEPAM 0.5 MG TAB PO SCH ×3 (09:00→21:29)
[2016-12-02] MEDS: DOXAZOSIN 2 MG TAB PO SCH (09:00)
[2016-12-02] MEDS: BISACODYL (EC) 5 MG TAB PO SCH (09:00)
[2016-12-02] MEDS: INSULIN ASPART [NOVOLOG] 3 ML PEN SC SCH ×7 (09:01→21:00)
[2016-12-02] MEDS: SILVER SULFADIAZINE 1% 25 GM CR TOP SCH (09:02)
[2016-12-02] MEDS: ENOXAPARIN 40 MG/0.4 ML SYG SC SCH (09:02)
[2016-12-02] MEDS: VANCOMYCIN 1 GM in NS 250 ML IVPB SCH ×2 (11:21→22:42)
--- NOTE | 2016-12-02 13:37 | PN ---
Date/Time of Note Date/Time of Note DATE: 12/02/16 TIME: 13:33 Assessment/Plan VTE Prophylaxis VTE Prophylaxis Intervention: LMWH Lines/Catheters IV [facility] Type (from [facility] Saline Lock Urinary Cath still in place: No Assessment/Plan Chief Complaint/Hosp Course No pain/fever. + phantom limb syndrome. vss no pallor reg s1s2; no m r g ctab bs+ nt nd; no r r g L bka status; Rt tma status w dressing c/d/i; likely neuropathy A/P 1) DFI/ Rt foot cellulitis/ abscess; sp I&D; f/u cultures; anticipate home 12/03 on po vs picc-iv antibiotics. outpt wound care/home health. 2) Dm 3) Tobacco abuse 4) PAD? 5) Ftt; wc bound; lives at a care home. silvadene Qd 6) Htn 7) Lt Bka & Rt Tma status Problems: Exam/Review of Systems Vital Signs Vitals Vital Signs Date Time Temp Pulse Resp B/P Pulse Ox O2 Delivery O2 Flow Rate FiO2 12/02/16 08:32 97.4 67 18 112/57 94 Intake and Output 12/01/16 12/01/16 12/02/16 15:00 23:00 07:00 Intake Total 250 ml 1320 ml 1210 ml Output Total 1450 ml 1250 ml Balance 250 ml -130 ml -40 ml Results Result Diagram: 12/02/16 0525 12/02/16 0525 Results 24 hrs Laboratory Tests Test 12/01/16 17:25 12/01/16 20:56 12/01/16 22:22 12/02/16 05:25 Bedside Glucose 100 130 Vancomycin Level Trough 14.9 White Blood Count 6.9 Red Blood Count 3.88 L Hemoglobin 11.6 L Hematocrit 33.0 L Mean Corpuscular Volume 85.1 Mean Corpuscular Hemoglobin 29.9 Mean Corpuscular Hemoglobin Concent 35.2 Red Cell Distribution Width 13.3 Platelet Count 213 # Mean Platelet Volume 10.1 Neutrophils % 66.6 Lymphocytes % 20.6 Monocytes % 8.8 Eosinophils % 3.6 Basophils % 0.0 Nucleated Red Blood Cells % 0.0 Neutrophils # 4.6 Lymphocytes # 1.4 Monocytes # 0.6 Eosinophils # 0.3 Basophils # 0.0 Nucleated Red Blood Cells # 0.0 Blood Urea Nitrogen 24 H Creatinine 0.92 Test 12/02/16 07:56 12/02/16 08:53 12/02/16 12:16 Bedside Glucose 195 194 220 Medications Medications Current Medications Acetaminophen (Tylenol Tab) 650 mg Q6H PRN PO PAIN LEVEL 1-3 OR FEVER; Start at 19:00 Acetaminophen/ Hydrocodone Bitart ([place] (5/325)) 1 tab Q6H PRN PO MODERATE PAIN LEVEL 4-6 Last administered on 12/02/16 11:18; Admin Dose 1 TAB; Start at 19:00 Docusate Sodium (Colace) 100 mg Q12H PRN PO CONSTIPATION; Start 11/27/16 at 19: 00 Magnesium Hydroxide (Milk Of Mag) 30 ml DAILY PRN PO CONSTIPATION; Start at 19:00 Enoxaparin Sodium (Lovenox) 40 mg DAILY SC Last administered on 12/02/16 09:02 ; Admin Dose 40 MG; Start 11/28/16 at 09:00 Bisacodyl (Dulcolax) 5 mg DAILY PO Last administered on 12/02/16 09:00; Admin Dose 5 MG; Start 11/28/16 at 09:00 Bisacodyl (Dulcolax) 10 mg DAILY PRN PO CONSTIPATION; Start 11/27/16 at 19:00 Cholecalciferol (Vitamin D) 2,000 unit DAILY PO Last administered on 12/02/16 08:59; Admin Dose 2,000 UNIT; Start 11/28/16 at 09:00 Clonazepam (Klonopin) 1 mg Q8H PRN PO ANXIETY Last administered on 11/27/16 22 :59; Admin Dose 1 MG; Start 11/27/16 at 19:00 Clonazepam (Klonopin) 1 mg TID PO Last administered on 12/02/16 12:22; Admin Dose 1 MG; Start 11/27/16 at 21:00 Doxazosin Mesylate (Cardura) 2 mg DAILY PO Last administered on 12/02/16 09:00 ; Admin Dose 2 MG; Start 11/28/16 at 09:00 Levothyroxine Sodium (Synthroid) 100 mcg DAILY@06 PO Last administered on 05:17; Admin Dose 100 MCG; Start 11/28/16 at 06:00 Methadone HCl (Methadone) 10 mg QID PO Last administered on 12/02/16 12:22; Admin Dose 10 MG; Start 11/27/16 at 21:00 Pentoxifylline (Trental) 400 mg TID PO Last administered on 12/02/16 12:22; Admin Dose 400 MG; Start 11/27/16 at 21:00 Zolpidem Tartrate (Ambien) 10 mg HS PRN PO insominia Last administered on 21:34; Admin Dose 10 MG; Start 11/27/16 at 19:00 Atorvastatin Calcium (Lipitor) 10 mg DAILY PO Last administered on 12/02/16 08: 59; Admin Dose 10 MG; Start 11/28/16 at 09:00 Miscellaneous Information 1 ea NOTE XX ; Start 11/27/16 at 19:00 Glucose (Glutose) 15 gm Q15M PRN PO DECREASED GLUCOSE; Start 11/27/16 at 19:00 Glucose (Glutose) 22.5 gm Q15M PRN PO DECREASED GLUCOSE; Start 11/27/16 at 19: 00 Dextrose (D50w Syringe) 25 ml Q15M PRN IV DECREASED GLUCOSE; Start 11/27/16 at 19:00 Dextrose (D50w Syringe) 50 ml Q15M PRN IV DECREASED GLUCOSE; Start 11/27/16 at 19:00 Glucagon (Glucagen) 1 mg Q15M PRN IM DECREASED GLUCOSE; Start 11/27/16 at 19:00 Glucose (Glutose) 15 gm Q15M PRN BUCCAL DECREASED GLUCOSE; Start 11/27/16 at 19 :00 Insulin Glargine (Lantus) 30 unit HS SC Last administered on 12/01/16 20:58; Admin Dose 30 UNIT; Start 11/29/16 at 21:00 Diagnostic Test (Pha) (Accu-Chek) 1 ea 02 XX ; Start 11/30/16 at 02:00 Silver Sulfadiazine 1 applic 1 applic DAILY TOP Last administered on 12/02/16 09:02; Admin Dose 1 APPLIC; Start 12/02/16 at 09:00 Vancomycin HCl (Vancocin) 250 ml @ 125 mls/hr Q12H IVPB Last administered on 11:21; Admin Dose 125 MLS/HR; Start 12/02/16 at 11:00 ELIO SALCIDO MD Dec 02, 2016 13:37
[2016-12-02] MEDS: LACTOBACILLUS RHAMNOSUS CAP PO SCH ×2 (13:58→21:29)
[2016-12-02] MEDS: NICOTINE (14 MG/24 HR) PATCH TRANSDERM SCH ×2 (13:58→14:00)
[2016-12-02] MEDS: FAMOTIDINE 20 MG TAB PO SCH (13:59)
[2016-12-02 19:33] VITALS: BP 126/58; RESP 16
[2016-12-02] MEDS: INSULIN GLARGINE [LANtus] 3 ML PEN SC SCH (21:31)
[2016-12-02] MEDS: ZOLPIDEM 5 MG TAB PO PRN (22:42)
[2016-12-03] MEDS: CEFTRIAXONE 1 GM/50 ML (PMX) 50 ML IVPB SCH (00:12)
--- NOTE | 2016-12-03 00:12 | CONS ---
Date/Time of Note Date/Time of Note DATE: 12/02/16 TIME: 23:52 Consultation Date/Type/Reason Admit Date/Time Nov 27, 2016 at 15:47 Date of Consultation: Dec 02, 1971 Type of Consultation: Infectious disease Reason for Consultation Right infected trans-metatarsal amputation site cellulitis, osteomyelitis, deep tissue infection. Referring Provider: MICHAEL SMITH MD Hx of Present Illness Patient is a 61-year-old white male diabetic who was admitted from the wound clinic on because of cellulitis of the right foot and transmetatarsal amputation with 2 plantar surface areas of induration. Patient has a history of peripheral vascular disease with a left AKA and more recently a right transmetatarsal amputation. Patient states it for approximately a year after having a transmetatarsal amputation there has been a tiny amount of drainage from a small pinhole opening along the incision site. He came to the clinic on the day of admission because of the pain in his right foot and denies fever or chills or right [place]. He had an x-ray of his right foot which revealed transmetatarsal amputation osteopenia but no osteomyelitis. Chronic pinhole and intermittent drainage is a sign of chronic osteomyelitis. The patient was begun on vancomycin there are no cultures available at this time his white count is not elevated being 8200 on admission Past medical history: Insulin-dependent diabetes mellitus long-term. Peripheral vascular disease Left below knee amputation Diabetic neuropathy Hypertension Hyper cholesterolemia Gastroesophageal reflux disease Chronic pain syndrome Opioid addiction Physical examination: Mesomorphic obese, bedridden life white male tattooed with left below-knee amputation and right transmetatarsal amputation accompanied by a powered wheelchair. Vital signs within normal limits pupils equal round react to light there is no scleral icterus the mouth has moist mucous membranes chest is increased diameter clear heart is regular abdomen is obese protuberant obese no palpable organs or masses examination extremities reveal well-healed left below knee amputation. The right lower extremity has a red swollen transmetatarsal amputation two areas of induration on the plantar midfoot. Diagnosis: Cellulitis right foot and ankle Osteomyelitis right foot transmetatarsal amputation site Peripheral vascular disease Left below-knee amputation Diabetes mellitus Hyperlipidemia Gastroesophageal reflux disease Hypertension Opioid addiction Chronic pain. Recommendation: Continue vancomycin pending culture results MRSA screen Culture drainage from affected area Add ceftriaxone pending cultures MRI right foot transmetatarsal amputation site ESR I have seen this patient for Dr.Jerrold Velia Witt MD Constitutional: improved, no complaints Eyes: no complaints ENT: no complaints Respiratory: no complaints Cardiovascular: no complaints Gastrointestinal: no complaints Genitourinary: no complaints Skin: other (contracted lower extremity bilaterally; wheelchair bound) Social History Smoking Status: Current some day smoker Exam/Review of Systems Vital Signs Vitals Vital Signs Date Time Temp Pulse Resp B/P Pulse Ox O2 Delivery O2 Flow Rate FiO2 12/02/16 19:33 98.2 78 16 126/58 96 Intake and Output 12/01/16 12/01/16 12/02/16 15:00 23:00 07:00 Intake Total 250 ml 1320 ml 1210 ml Output Total 1450 ml 1250 ml Balance 250 ml -130 ml -40 ml Results Result Diagram: 12/02/16 0525 12/02/16 0525 Results 24 hrs Laboratory Tests Test 12/02/16 05:25 12/02/16 07:56 12/02/16 08:53 12/02/16 12:16 White Blood Count 6.9 Red Blood Count 3.88 L Hemoglobin 11.6 L Hematocrit 33.0 L Mean Corpuscular Volume 85.1 Mean Corpuscular Hemoglobin 29.9 Mean Corpuscular Hemoglobin Concent 35.2 Red Cell Distribution Width 13.3 Platelet Count 213 # Mean Platelet Volume 10.1 Neutrophils % 66.6 Lymphocytes % 20.6 Monocytes % 8.8 Eosinophils % 3.6 Basophils % 0.0 Nucleated Red Blood Cells % 0.0 Neutrophils # 4.6 Lymphocytes # 1.4 Monocytes # 0.6 Eosinophils # 0.3 Basophils # 0.0 Nucleated Red Blood Cells # 0.0 Blood Urea Nitrogen 24 H Creatinine 0.92 Bedside Glucose 195 194 220 Test 12/02/16 16:56 12/02/16 21:24 Bedside Glucose 107 110 Medications Medications Current Medications Acetaminophen (Tylenol Tab) 650 mg Q6H PRN PO PAIN LEVEL 1-3 OR FEVER; Start at 19:00 Acetaminophen/ Hydrocodone Bitart ([place] (5/325)) 1 tab Q6H PRN PO MODERATE PAIN LEVEL 4-6 Last administered on 12/02/16t 17:27; Admin Dose 1 TAB; Start at 19:00 Docusate Sodium (Colace) 100 mg Q12H PRN PO CONSTIPATION; Start 11/27/16 at 19: 00 Magnesium Hydroxide (Milk Of Mag) 30 ml DAILY PRN PO CONSTIPATION; Start at 19:00 Enoxaparin Sodium (Lovenox) 40 mg DAILY SC Last administered on 12/02/16 09:02 ; Admin Dose 40 MG; Start 11/28/16 at 09:00 Bisacodyl (Dulcolax) 10 mg DAILY PRN PO CONSTIPATION; Start 11/27/16 at 19:00 Cholecalciferol (Vitamin D) 2,000 unit DAILY PO Last administered on 12/02/16 08:59; Admin Dose 2,000 UNIT; Start 11/28/16 at 09:00 Clonazepam (Klonopin) 1 mg Q8H PRN PO ANXIETY Last administered on 11/27/16 22 :59; Admin Dose 1 MG; Start 11/27/16 at 19:00 Clonazepam (Klonopin) 1 mg TID PO Last administered on 12/02/16 21:29; Admin Dose 1 MG; Start 11/27/16 at 21:00 Doxazosin Mesylate (Cardura) 2 mg DAILY PO Last administered on 12/02/16 09:00 ; Admin Dose 2 MG; Start 11/28/16 at 09:00 Levothyroxine Sodium (Synthroid) 100 mcg DAILY@06 PO Last administered on 05:17; Admin Dose 100 MCG; Start 11/28/16 at 06:00 Methadone HCl (Methadone) 10 mg QID PO Last administered on 12/02/16 21:28; Admin Dose 10 MG; Start 11/27/16 at 21:00 Pentoxifylline (Trental) 400 mg TID PO Last administered on 12/02/16 21:28; Admin Dose 400 MG; Start 11/27/16 at 21:00 Zolpidem Tartrate (Ambien) 10 mg HS PRN PO insominia Last administered on 22:42; Admin Dose 10 MG; Start 11/27/16 at 19:00 Atorvastatin Calcium (Lipitor) 10 mg DAILY PO Last administered on 12/02/16 08: 59; Admin Dose 10 MG; Start 11/28/16 at 09:00 Miscellaneous Information 1 ea NOTE XX ; Start 11/27/16 at 19:00 Glucose (Glutose) 15 gm Q15M PRN PO DECREASED GLUCOSE; Start 11/27/16 at 19:00 Glucose (Glutose) 22.5 gm Q15M PRN PO DECREASED GLUCOSE; Start 11/27/16 at 19: 00 Dextrose (D50w Syringe) 25 ml Q15M PRN IV DECREASED GLUCOSE; Start 11/27/16 at 19:00 Dextrose (D50w Syringe) 50 ml Q15M PRN IV DECREASED GLUCOSE; Start 11/27/16 at 19:00 Glucagon (Glucagen) 1 mg Q15M PRN IM DECREASED GLUCOSE; Start 11/27/16 at 19:00 Glucose (Glutose) 15 gm Q15M PRN BUCCAL DECREASED GLUCOSE; Start 11/27/16 at 19 :00 Insulin Glargine (Lantus) 30 unit HS SC Last administered on 12/02/16 21:31; Admin Dose 30 UNIT; Start 11/29/16 at 21:00 Diagnostic Test (Pha) (Accu-Chek) 1 ea 02 XX ; Start 11/30/16 at 02:00 Silver Sulfadiazine 1 applic 1 applic DAILY TOP Last administered on 12/02/16 09:02; Admin Dose 1 APPLIC; Start 12/02/16 at 09:00 Vancomycin HCl (Vancocin) 250 ml @ 125 mls/hr Q12H IVPB Last administered on 22:42; Admin Dose 125 MLS/HR; Start 12/02/16 at 11:00 Lactobacillus Acidophilus/ Rhamnosus (Culturelle) 1 cap BID PO Last administered on 12/02/16 21:29; Admin Dose 1 CAP; Start 12/02/16 at 14:00 Famotidine (Pepcid) 20 mg DAILY PO Last administered on 12/02/16 13:59; Admin Dose 20 MG; Start 12/02/16 at 14:00 Nicotine 1 patch 1 patch DAILY TRANSDERM ; Start 12/02/16 at 14:00 Ceftriaxone Sodium (Rocephin) 50 ml @ 100 mls/hr Q24H IVPB ; Start 12/03/16 at 00:00; Stop 12/14/16 at 00:00 Natalia WITT MD Dec 03, 2016 00:11
[2016-12-03] MEDS: ACCU-CHEK XX SCH (02:00)
[2016-12-03] MEDS: LEVOTHYROXINE 100 MCG TAB PO SCH (05:25)
[2016-12-03 05:30] LABS: ADD SCAN DIFF NO
[2016-12-03 05:38] LABS: EOSINOPHILS # 0.3 10^3/ul (0.0-0.5); EOSINOPHILS % 4.1 % (0.0-7.0); HEMATOCRIT 33.6 % (42.0-52.0); HEMOGLOBIN 11.5 g/dl (14.0-18.0); LYMPHOCYTES # 1.5 10^3/ul (0.8-2.9); LYMPHOCYTES % 21.7 % (15.0-51.0); MEAN CORPUSCULAR HGB CONC 34.2 g/dl (32.0-37.0); MEAN CORPUSCULAR VOLUME 84.8 fl (82.0-101.0); MEAN PLATELET VOLUME 10.3 fl (7.4-10.4); MONOCYTE # 0.6 10^3/ul (0.3-0.9); MONOCYTES % 8.2 % (0.0-11.0); NEUTROPHIL # 4.5 10^3/ul (1.6-7.5); NEUTROPHILS % 65.7 % (39.0-77.0); PLATELET COUNT 210 10^3/UL (140-415); RED BLOOD COUNT 3.96 10^6/ul (4.70-6.10); RED CELL DISTRIBUTION WIDTH 13.3 % (11.5-14.5); WHITE BLOOD COUNT 6.8 10^3/ul (4.8-10.8)
[2016-12-03 05:48] LABS: INR 0.99; PROTIME 13.1 Sec (12.2-14.2)
[2016-12-03 06:20] LABS: ALBUMIN 3.7 g/dl (3.3-4.9); ALBUMIN/GLOBULIN RATIO 1.32; BILIRUBIN,INDIRECT 0.6 mg/dl (0-1.1); BILIRUBIN,TOTAL 0.6 mg/dl (0.2-1.3); CALCIUM 9.4 mg/dl (8.4-10.2); CREATININE 0.98 mg/dl (0.61-1.24); MAGNESIUM 1.9 mg/dl (1.7-2.5); PHOSPHORUS 3.5 mg/dl (2.5-4.9); POTASSIUM 4.9 mmol/L (3.5-5.1); TOTAL PROTEIN 6.5 g/dl (6.1-8.1)
[2016-12-03 07:16] LABS: CREATININE 0.96 mg/dl (0.61-1.24)
[2016-12-03 08:00] VITALS: BP 133/64; RESP 18
[2016-12-03] MEDS: INSULIN ASPART [NOVOLOG] 3 ML PEN SC SCH ×7 (08:12→21:00)
[2016-12-03] MEDS: LACTOBACILLUS RHAMNOSUS CAP PO SCH ×2 (08:15→20:47)
[2016-12-03] MEDS: CHOLECALCIFEROL 2,000 UNIT CAP PO SCH (08:15)
[2016-12-03] MEDS: clonAZEPAM 0.5 MG TAB PO SCH ×3 (08:15→20:47)
[2016-12-03] MEDS: METHADONE 10 MG TAB PO SCH ×4 (08:16→20:48)
[2016-12-03] MEDS: PENTOXIFYLLINE (SR) 400 MG TAB PO SCH ×3 (08:16→20:48)
[2016-12-03] MEDS: FAMOTIDINE 20 MG TAB PO SCH (08:16)
[2016-12-03] MEDS: NICOTINE (14 MG/24 HR) PATCH TRANSDERM SCH ×2 (08:16→08:24)
[2016-12-03] MEDS: ATORVASTATIN 10 MG TAB PO SCH (08:17)
[2016-12-03] MEDS: DOXAZOSIN 2 MG TAB PO SCH (08:17)
[2016-12-03] MEDS: ENOXAPARIN 40 MG/0.4 ML SYG SC SCH (08:19)
[2016-12-03] MEDS: SILVER SULFADIAZINE 1% 25 GM CR TOP SCH (09:03)
--- NOTE | 2016-12-03 10:51 | PN ---
Date/Time of Note Date/Time of Note DATE: 12/03/16 TIME: 10:50 Assessment/Plan VTE Prophylaxis VTE Prophylaxis Intervention: LMWH Lines/Catheters IV [facility] Saline Lock Urinary Cath still in place: No Assessment/Plan Chief Complaint/Hosp Course S- 12/02 no pain/fever. + phantom limb syndrome. 12/03 no events vss no pallor reg s1s2; no m r g ctab bs+ nt nd; no r r g L bka status; Rt tma status w dressing c/d/i; likely neuropathy A/P 1) DFI/ Rt foot cellulitis/abscess/probable OM; sp I&D; f/u cultures; anticipate home 12/04 on po vs picc-iv antibiotics. outpt wound care/home health. 2) Dm 3) Tobacco abuse 4) PAD? 5) Ftt; wc bound; lives at a alf. silvadene Qd 6) Htn 7) Lt Bka & Rt Tma status. MRI pending. Problems: Exam/Review of Systems Vital Signs Vitals Vital Signs Date Time Temp Pulse Resp B/P Pulse Ox O2 Delivery O2 Flow Rate FiO2 12/02/16 19:33 98.2 78 16 126/58 96 Intake and Output 12/02/16 12/02/16 12/03/16 15:00 23:00 07:00 Intake Total 250 ml 1540 ml 825 ml Output Total 1000 ml 950 ml Balance 250 ml 540 ml -125 ml Results Result Diagram: 12/03/16 0505 12/03/16 0505 Results 24 hrs Laboratory Tests Test 12/02/16 12:16 12/02/16 16:56 12/02/16 21:24 12/03/16 05:05 Bedside Glucose 220 107 110 White Blood Count 6.8 Red Blood Count 3.96 L Hemoglobin 11.5 L Hematocrit 33.6 L Mean Corpuscular Volume 84.8 Mean Corpuscular Hemoglobin 29.0 Mean Corpuscular Hemoglobin Concent 34.2 Red Cell Distribution Width 13.3 Platelet Count 210 Mean Platelet Volume 10.3 Neutrophils % 65.7 Lymphocytes % 21.7 Monocytes % 8.2 Eosinophils % 4.1 Basophils % 0.0 Nucleated Red Blood Cells % 0.0 Neutrophils # 4.5 Lymphocytes # 1.5 Monocytes # 0.6 Eosinophils # 0.3 Basophils # 0.0 Nucleated Red Blood Cells # 0.0 Prothrombin Time 13.1 Prothrombin Time Ratio 1.0 INR International Normalized Ratio 0.99 Sodium Level 138 Potassium Level 4.9 Chloride Level 98 Carbon Dioxide Level 26 Anion Gap 19 H Blood Urea Nitrogen 19 Creatinine 0.98 Glucose Level 304 H Calcium Level 9.4 Phosphorus Level 3.5 Magnesium Level 1.9 Total Bilirubin 0.6 Direct Bilirubin 0.00 Indirect Bilirubin 0.6 Aspartate Amino Transf (AST/SGOT) 41 Alanine Aminotransferase (ALT/SGPT) 36 Alkaline Phosphatase 72 Total Protein 6.5 Albumin 3.7 Globulin 2.80 Albumin/Globulin Ratio 1.32 Test 12/03/16 07:58 Bedside Glucose 349 H Medications Medications Current Medications Acetaminophen (Tylenol Tab) 650 mg Q6H PRN PO PAIN LEVEL 1-3 OR FEVER; Start at 19:00 Acetaminophen/ Hydrocodone Bitart ([place] (5/325)) 1 tab Q6H PRN PO MODERATE PAIN LEVEL 4-6 Last administered on 12/02/16 17:27; Admin Dose 1 TAB; Start at 19:00 Docusate Sodium (Colace) 100 mg Q12H PRN PO CONSTIPATION; Start 11/27/16 at 19: 00 Magnesium Hydroxide (Milk Of Mag) 30 ml DAILY PRN PO CONSTIPATION; Start at 19:00 Enoxaparin Sodium (Lovenox) 40 mg DAILY SC Last administered on 12/03/16 08:19 ; Admin Dose 40 MG; Start 11/28/16 at 09:00 Bisacodyl (Dulcolax) 10 mg DAILY PRN PO CONSTIPATION; Start 11/27/16 at 19:00 Cholecalciferol (Vitamin D) 2,000 unit DAILY PO Last administered on 12/03/16 08:15; Admin Dose 2,000 UNIT; Start 11/28/16 at 09:00 Clonazepam (Klonopin) 1 mg Q8H PRN PO ANXIETY Last administered on 11/27/16 22 :59; Admin Dose 1 MG; Start 11/27/16 at 19:00 Clonazepam (Klonopin) 1 mg TID PO Last administered on 12/03/16 08:15; Admin Dose 1 MG; Start 11/27/16 at 21:00 Doxazosin Mesylate (Cardura) 2 mg DAILY PO Last administered on 12/03/16 08:17 ; Admin Dose 2 MG; Start 11/28/16 at 09:00 Levothyroxine Sodium (Synthroid) 100 mcg DAILY@06 PO Last administered on 05:25; Admin Dose 100 MCG; Start 11/28/16 at 06:00 Methadone HCl (Methadone) 10 mg QID PO Last administered on 12/03/16 08:16; Admin Dose 10 MG; Start 11/27/16 at 21:00 Pentoxifylline (Trental) 400 mg TID PO Last administered on 12/03/16 08:16; Admin Dose 400 MG; Start 11/27/16 at 21:00 Zolpidem Tartrate (Ambien) 10 mg HS PRN PO insominia Last administered on 22:42; Admin Dose 10 MG; Start 11/27/16 at 19:00 Atorvastatin Calcium (Lipitor) 10 mg DAILY PO Last administered on 12/03/16 08: 17; Admin Dose 10 MG; Start 11/28/16 at 09:00 Miscellaneous Information 1 ea NOTE XX ; Start 11/27/16 at 19:00 Glucose (Glutose) 15 gm Q15M PRN PO DECREASED GLUCOSE; Start 11/27/16 at 19:00 Glucose (Glutose) 22.5 gm Q15M PRN PO DECREASED GLUCOSE; Start 11/27/16 at 19: 00 Dextrose (D50w Syringe) 25 ml Q15M PRN IV DECREASED GLUCOSE; Start 11/27/16 at 19:00 Dextrose (D50w Syringe) 50 ml Q15M PRN IV DECREASED GLUCOSE; Start 11/27/16 at 19:00 Glucagon (Glucagen) 1 mg Q15M PRN IM DECREASED GLUCOSE; Start 11/27/16 at 19:00 Glucose (Glutose) 15 gm Q15M PRN BUCCAL DECREASED GLUCOSE; Start 11/27/16 at 19 :00 Insulin Glargine (Lantus) 30 unit HS SC Last administered on 12/02/16 21:31; Admin Dose 30 UNIT; Start 11/29/16 at 21:00 Diagnostic Test (Pha) (Accu-Chek) 1 ea 02 XX ; Start 11/30/16 at 02:00 Silver Sulfadiazine 1 applic 1 applic DAILY TOP Last administered on 12/03/16 09:03; Admin Dose 1 APPLIC; Start 12/02/16 at 09:00 Vancomycin HCl (Vancocin) 250 ml @ 125 mls/hr Q12H IVPB Last administered on 22:42; Admin Dose 125 MLS/HR; Start 12/02/16 at 11:00 Lactobacillus Acidophilus/ Rhamnosus (Culturelle) 1 cap BID PO Last administered on 12/03/16 08:15; Admin Dose 1 CAP; Start 12/02/16 at 14:00 Famotidine (Pepcid) 20 mg DAILY PO Last administered on 12/03/16 08:16; Admin Dose 20 MG; Start 12/02/16 at 14:00 Nicotine 1 patch 1 patch DAILY TRANSDERM ; Start 12/02/16 at 14:00 Ceftriaxone Sodium (Rocephin) 50 ml @ 100 mls/hr Q24H IVPB Last administered on 12/03/16 00:12; Admin Dose 100 MLS/HR; Start 12/03/16 at 00:00; Stop 12/14/16 at 00:00 ELIO SALCIDO MD Dec 03, 2016 10:51
--- NOTE | 2016-12-03 11:53 | PN ---
Date/Time of Note Date/Time of Note DATE: 12/03/16 TIME: 11:48 Assessment/Plan Lines/Catheters IV Catheter Type (from Nrsg): Saline Lock [place] in Place (from Nrsg): No Assessment/Plan Problems: (1) Pain of right leg Status: Acute (2) Non-pressure chronic ulcer of other part of right foot with fat layer exposed (3) Wheelchair bound (4) Abscess of right foot (5) Acquired absence of right foot (6) Status post below knee amputation of left lower extremity Assessment/Plan Right foot is significantly improved. There is significant decrease in erythema and edema. There is significant reduction in pain. Patient reports feeling much better overall. At this point, patient may be discharged as per foot and ankle surgery and be followed up at the amputation prevention center for wound follow-up. There is an MRI ordered by infectious disease specialist. Patient is nonweightbearing. Daily dressing change to continue. Santyl ointment to be applied to the open wound with daily dressing changes. Subjective 24 Hr Interval Summary Patient was seen at bedside. Patient is in no acute distress. Patient reports no new adverse events. Patient denies fever, chills, nausea or vomiting. Patient denies pain. Patient denies recent trauma. Patient reports bandages are being changed as directed. Patient does not report any new problems. Constitutional: BM, ambulates, flatus, improved, no complaints, urine output Pain Control: well controlled Exam/Review of Systems Vital Signs Vitals Vital Signs Date Time Temp Pulse Resp B/P Pulse Ox O2 Delivery O2 Flow Rate FiO2 12/03/16 08:00 98.6 76 18 133/64 96 Intake and Output 12/02/16 12/02/16 12/03/16 15:00 23:00 07:00 Intake Total 250 ml 1540 ml 825 ml Output Total 1000 ml 950 ml Balance 250 ml 540 ml -125 ml Exam Free Text/Dictation GENERAL: Patient is in no acute distress; patient is well-developed and well- nourished; patient is nonambulatory and uses a wheelchair; laying supine in bed VASCULAR: Pedal pulses are weakly palpable right lower extremity; status post left BKA. There is decreased edema of the right foot. Normal temperature gradient noted bilaterally. No varicose veins noted in the lower extremity. Lower leg hyperpigmentation absent NEUROLOGICAL: Protective sensation is diminished significant to sharp, dull, vibratory and temperature stimuli right foot SKIN: Open wound plantar right foot improved since bedside incision and drainage. There is decrease in erythema surrounding the wound with no malodor. There is no drainage noted MUSCULOSKELETAL: Status post TMA right foot; status post BKA left lower extreme. Nontender to exam Labs reviewed Results Result Diagram: 12/03/16 0505 12/03/16 0505 GIOVANNA ALEJANDRO DPM Dec 03, 2016 11:53
[2016-12-03] MEDS: VANCOMYCIN 1 GM in NS 250 ML IVPB SCH ×2 (11:55→22:20)
[2016-12-03] MEDS: COLLAGENASE 30 GM TUBE TOP SCH (12:00)
--- NOTE | 2016-12-03 14:08 | CONS ---
Date/Time of Note Date/Time of Note DATE: 12/03/16 TIME: 14:07 Assessment/Plan Assessment/Plan Chief Complaint/Hosp Course No acute changes overnight, patient is alert sitting comfortably in bed, denies pain no fevers Laboratory data: WBC 6.8, no shift no balance, BUN 19, creatinine 0.98 Microbiology: Wound culture on November 27 grew Klebsiella pneumonia strep and oxacillin since sensitive staph aureus Antimicrobials: Vancomycin, Rocephin Physical examination well-developed, well-nourished elderly man who is alert in no distress. Head atraumatic normocephalic. Sclerae anicteric.. Neck is supple, trachea midline. Chest rise symmetrical, breath sounds clear bilaterally. Heart S1-S2. Abdomen soft, bowel tones present. Extremities with right foot dressing intact. Assessment: 1. Infected right TMA stump status post I&D 2. Diabetes 3. Peripheral vascular disease Plan: Clinically stable, per discussion with Dr. Mayo who did debridement there was no evidence for osteomyelitis. We will await for repeat MRI. Continue on current antibiotics. Local wound care as per podiatry recommendations. Problems: Consultation Date/Type/Reason Admit Date/Time Nov 27, 2016 at 15:47 Initial Consult Date 12/02/70 Type of Consultation: Infectious disease Referring Provider: MICHAEL SMITH MD Exam/Review of Systems Vital Signs Vitals Vital Signs Date Time Temp Pulse Resp B/P Pulse Ox O2 Delivery O2 Flow Rate FiO2 12/03/16 08:00 98.6 76 18 133/64 96 Intake and Output 12/02/16 12/02/16 12/03/16 15:00 23:00 07:00 Intake Total 250 ml 1540 ml 825 ml Output Total 1000 ml 950 ml Balance 250 ml 540 ml -125 ml Results Result Diagram: 12/03/16 0505 12/03/16 0505 Results 24 hrs Laboratory Tests Test 12/02/16 16:56 12/02/16 21:24 12/03/16 05:05 12/03/16 07:58 Bedside Glucose 107 110 349 H White Blood Count 6.8 Red Blood Count 3.96 L Hemoglobin 11.5 L Hematocrit 33.6 L Mean Corpuscular Volume 84.8 Mean Corpuscular Hemoglobin 29.0 Mean Corpuscular Hemoglobin Concent 34.2 Red Cell Distribution Width 13.3 Platelet Count 210 Mean Platelet Volume 10.3 Neutrophils % 65.7 Lymphocytes % 21.7 Monocytes % 8.2 Eosinophils % 4.1 Basophils % 0.0 Nucleated Red Blood Cells % 0.0 Neutrophils # 4.5 Lymphocytes # 1.5 Monocytes # 0.6 Eosinophils # 0.3 Basophils # 0.0 Nucleated Red Blood Cells # 0.0 Prothrombin Time 13.1 Prothrombin Time Ratio 1.0 INR International Normalized Ratio 0.99 Sodium Level 138 Potassium Level 4.9 Chloride Level 98 Carbon Dioxide Level 26 Anion Gap 19 H Blood Urea Nitrogen 19 Creatinine 0.98 Glucose Level 304 H Calcium Level 9.4 Phosphorus Level 3.5 Magnesium Level 1.9 Total Bilirubin 0.6 Direct Bilirubin 0.00 Indirect Bilirubin 0.6 Aspartate Amino Transf (AST/SGOT) 41 Alanine Aminotransferase (ALT/SGPT) 36 Alkaline Phosphatase 72 Total Protein 6.5 Albumin 3.7 Globulin 2.80 Albumin/Globulin Ratio 1.32 Test 12/03/16 11:50 Bedside Glucose 307 H Medications Medications Current Medications Acetaminophen (Tylenol Tab) 650 mg Q6H PRN PO PAIN LEVEL 1-3 OR FEVER; Start at 19:00 Acetaminophen/ Hydrocodone Bitart ([place] (5/325)) 1 tab Q6H PRN PO MODERATE PAIN LEVEL 4-6 Last administered on 12/02/16 17:27; Admin Dose 1 TAB; Start at 19:00 Docusate Sodium (Colace) 100 mg Q12H PRN PO CONSTIPATION; Start 11/27/16 at 19: 00 Magnesium Hydroxide (Milk Of Mag) 30 ml DAILY PRN PO CONSTIPATION; Start at 19:00 Enoxaparin Sodium (Lovenox) 40 mg DAILY SC Last administered on 12/03/16 08:19 ; Admin Dose 40 MG; Start 11/28/16 at 09:00 Bisacodyl (Dulcolax) 10 mg DAILY PRN PO CONSTIPATION; Start 11/27/16 at 19:00 Cholecalciferol (Vitamin D) 2,000 unit DAILY PO Last administered on 12/03/16 08:15; Admin Dose 2,000 UNIT; Start 11/28/16 at 09:00 Clonazepam (Klonopin) 1 mg Q8H PRN PO ANXIETY Last administered on 11/27/16 22 :59; Admin Dose 1 MG; Start 11/27/16 at 19:00 Clonazepam (Klonopin) 1 mg TID PO Last administered on 12/03/16 12:30; Admin Dose 1 MG; Start 11/27/16 at 21:00 Doxazosin Mesylate (Cardura) 2 mg DAILY PO Last administered on 12/03/16 08:17 ; Admin Dose 2 MG; Start 11/28/16 at 09:00 Levothyroxine Sodium (Synthroid) 100 mcg DAILY@06 PO Last administered on 05:25; Admin Dose 100 MCG; Start 11/28/16 at 06:00 Methadone HCl (Methadone) 10 mg QID PO Last administered on 12/03/16 12:30; Admin Dose 10 MG; Start 11/27/16 at 21:00 Pentoxifylline (Trental) 400 mg TID PO Last administered on 12/03/16 12:30; Admin Dose 400 MG; Start 11/27/16 at 21:00 Zolpidem Tartrate (Ambien) 10 mg HS PRN PO insominia Last administered on 22:42; Admin Dose 10 MG; Start 11/27/16 at 19:00 Atorvastatin Calcium (Lipitor) 10 mg DAILY PO Last administered on 12/03/16 08: 17; Admin Dose 10 MG; Start 11/28/16 at 09:00 Miscellaneous Information 1 ea NOTE XX ; Start 11/27/16 at 19:00 Glucose (Glutose) 15 gm Q15M PRN PO DECREASED GLUCOSE; Start 11/27/16 at 19:00 Glucose (Glutose) 22.5 gm Q15M PRN PO DECREASED GLUCOSE; Start 11/27/16 at 19: 00 Dextrose (D50w Syringe) 25 ml Q15M PRN IV DECREASED GLUCOSE; Start 11/27/16 at 19:00 Dextrose (D50w Syringe) 50 ml Q15M PRN IV DECREASED GLUCOSE; Start 11/27/16 at 19:00 Glucagon (Glucagen) 1 mg Q15M PRN IM DECREASED GLUCOSE; Start 11/27/16 at 19:00 Glucose (Glutose) 15 gm Q15M PRN BUCCAL DECREASED GLUCOSE; Start 11/27/16 at 19 :00 Diagnostic Test (Pha) (Accu-Chek) 1 ea 02 XX ; Start 11/30/16 at 02:00 Silver Sulfadiazine 1 applic 1 applic DAILY TOP Last administered on 12/03/16 09:03; Admin Dose 1 APPLIC; Start 12/02/16 at 09:00 Vancomycin HCl (Vancocin) 250 ml @ 125 mls/hr Q12H IVPB Last administered on 11:55; Admin Dose 125 MLS/HR; Start 12/02/16 at 11:00 Lactobacillus Acidophilus/ Rhamnosus (Culturelle) 1 cap BID PO Last administered on 12/03/16 08:15; Admin Dose 1 CAP; Start 12/02/16 at 14:00 Famotidine (Pepcid) 20 mg DAILY PO Last administered on 12/03/16 08:16; Admin Dose 20 MG; Start 12/02/16 at 14:00 Nicotine 1 patch 1 patch DAILY TRANSDERM ; Start 12/02/16 at 14:00 Ceftriaxone Sodium (Rocephin) 50 ml @ 100 mls/hr Q24H IVPB Last administered on 12/03/16 00:12; Admin Dose 100 MLS/HR; Start 12/03/16 at 00:00; Stop 12/14/16 at 00:00 Insulin Glargine (Lantus) 35 unit HS SC ; Start 12/03/16 at 21:00 Collagenase (Santyl) 1 applic DAILY TOP ; Start 12/03/16 at 12:00 PALOMO OWENS NP Dec 03, 2016 14:08
[2016-12-03] MEDS: HYDROCODONE/APAP (5/325) TAB PO PRN (19:19)
[2016-12-03 20:40] VITALS: BP 126/63; RESP 20
[2016-12-03] MEDS: INSULIN GLARGINE [LANtus] 3 ML PEN SC SCH (20:50)
[2016-12-03] MEDS: ZOLPIDEM 5 MG TAB PO PRN (22:07)
[2016-12-04] MEDS: CEFTRIAXONE 1 GM/50 ML (PMX) 50 ML IVPB SCH (01:20)
[2016-12-04] MEDS: ACCU-CHEK XX SCH (02:00)
[2016-12-04] MEDS: LEVOTHYROXINE 100 MCG TAB PO SCH (05:06)
[2016-12-04] MEDS: HYDROCODONE/APAP (5/325) TAB PO PRN (05:10)
[2016-12-04 05:49] LABS: ADD SCAN DIFF NO
[2016-12-04 05:51] LABS: EOSINOPHILS # 0.3 10^3/ul (0.0-0.5); EOSINOPHILS % 3.9 % (0.0-7.0); HEMATOCRIT 32.4 % (42.0-52.0); HEMOGLOBIN 11.1 g/dl (14.0-18.0); LYMPHOCYTES # 1.6 10^3/ul (0.8-2.9); LYMPHOCYTES % 22.3 % (15.0-51.0); MEAN CORPUSCULAR HEMOGLOBIN 29.1 pg (29.0-33.0); MEAN CORPUSCULAR HGB CONC 34.3 g/dl (32.0-37.0); MEAN CORPUSCULAR VOLUME 84.8 fl (82.0-101.0); MEAN PLATELET VOLUME 10.3 fl (7.4-10.4); MONOCYTE # 0.5 10^3/ul (0.3-0.9); MONOCYTES % 7.1 % (0.0-11.0); NEUTROPHIL # 4.9 10^3/ul (1.6-7.5); NEUTROPHILS % 66.3 % (39.0-77.0); PLATELET COUNT 191 10^3/UL (140-415); RED BLOOD COUNT 3.82 10^6/ul (4.70-6.10); RED CELL DISTRIBUTION WIDTH 13.5 % (11.5-14.5); WHITE BLOOD COUNT 7.4 10^3/ul (4.8-10.8)
[2016-12-04 06:15] LABS: CALCIUM 9.1 mg/dl (8.4-10.2); CREATININE 1.09 mg/dl (0.61-1.24); POTASSIUM 4.4 mmol/L (3.5-5.1)
[2016-12-04 08:00] VITALS: BP 137/65; RESP 20
[2016-12-04] MEDS: INSULIN ASPART [NOVOLOG] 3 ML PEN SC SCH ×7 (08:24→21:05)
[2016-12-04] MEDS: FAMOTIDINE 20 MG TAB PO SCH (08:26)
[2016-12-04] MEDS: LACTOBACILLUS RHAMNOSUS CAP PO SCH ×2 (08:26→20:55)
[2016-12-04] MEDS: METHADONE 10 MG TAB PO SCH ×4 (08:27→20:55)
[2016-12-04] MEDS: PENTOXIFYLLINE (SR) 400 MG TAB PO SCH ×3 (08:27→20:54)
[2016-12-04] MEDS: clonAZEPAM 0.5 MG TAB PO SCH ×3 (08:27→20:55)
[2016-12-04] MEDS: ATORVASTATIN 10 MG TAB PO SCH (08:27)
[2016-12-04] MEDS: NICOTINE (14 MG/24 HR) PATCH TRANSDERM SCH (08:28)
[2016-12-04] MEDS: CHOLECALCIFEROL 2,000 UNIT CAP PO SCH (08:28)
[2016-12-04] MEDS: DOXAZOSIN 2 MG TAB PO SCH (08:28)
[2016-12-04] MEDS: ENOXAPARIN 40 MG/0.4 ML SYG SC SCH (08:32)
[2016-12-04] MEDS: VANCOMYCIN 1 GM in NS 250 ML IVPB SCH (11:58)
--- NOTE | 2016-12-04 14:06 | CONS ---
Date/Time of Note Date/Time of Note DATE: 12/04/16 TIME: 14:04 Assessment/Plan Assessment/Plan Chief Complaint/Hosp Course No acute changes overnight, patient is alert sitting comfortably in bed, denies pain no fevers Microbiology: Wound culture on November 27 grew Klebsiella pneumonia strep and oxacillin since sensitive staph aureus Antimicrobials: Vancomycin, Rocephin Physical examination well-developed, well-nourished elderly man who is alert in no distress. Head atraumatic normocephalic. Sclerae anicteric.. Neck is supple, trachea midline. Chest rise symmetrical, breath sounds clear bilaterally. Heart S1-S2. Abdomen soft, bowel tones present. Extremities with right foot dressing intact. Assessment: 1. Infected right TMA stump status post I&D ==>no evidence for OM per podiatry 2. Diabetes 3. Peripheral vascular disease Plan: Clinically stable, anticipate dc on oral Cipro for 10 days dw staff Problems: Consultation Date/Type/Reason Admit Date/Time Nov 27, 2016 at 15:47 Initial Consult Date 12/02/70 Type of Consultation: Infectious disease Referring Provider: MICHAEL SMITH MD Exam/Review of Systems Vital Signs Vitals Vital Signs Date Time Temp Pulse Resp B/P Pulse Ox O2 Delivery O2 Flow Rate FiO2 12/04/16 08:00 98.8 72 20 137/65 96 Intake and Output 12/03/16 12/03/16 12/04/16 14:59 22:59 06:59 Intake Total 250 ml 1320 ml 1220 ml Output Total 900 ml 1750 ml Balance 250 ml 420 ml -530 ml Results Result Diagram: 12/04/16 0505 12/04/16 0505 Results 24 hrs Laboratory Tests Test 12/03/16 17:12 12/03/16 20:03 12/03/16 23:15 12/04/16 05:05 Bedside Glucose 187 111 Erythrocyte Sedimentation Rate 30 H White Blood Count 7.4 Red Blood Count 3.82 L Hemoglobin 11.1 L Hematocrit 32.4 L Mean Corpuscular Volume 84.8 Mean Corpuscular Hemoglobin 29.1 Mean Corpuscular Hemoglobin Concent 34.3 Red Cell Distribution Width 13.5 Platelet Count 191 Mean Platelet Volume 10.3 Neutrophils % 66.3 Lymphocytes % 22.3 Monocytes % 7.1 Eosinophils % 3.9 Basophils % 0.0 Nucleated Red Blood Cells % 0.0 Neutrophils # 4.9 Lymphocytes # 1.6 Monocytes # 0.5 Eosinophils # 0.3 Basophils # 0.0 Nucleated Red Blood Cells # 0.0 Sodium Level 135 Potassium Level 4.4 Chloride Level 100 Carbon Dioxide Level 29 Anion Gap 10 # Blood Urea Nitrogen 23 H Creatinine 1.09 Glucose Level 283 H Calcium Level 9.1 Test 12/04/16 08:04 12/04/16 11:49 Bedside Glucose 354 H 234 H Medications Medications Current Medications Acetaminophen (Tylenol Tab) 650 mg Q6H PRN PO PAIN LEVEL 1-3 OR FEVER; Start at 19:00 Acetaminophen/ Hydrocodone Bitart ([place] (5/325)) 1 tab Q6H PRN PO MODERATE PAIN LEVEL 4-6 Last administered on 12/04/16 05:10; Admin Dose 1 TAB; Start at 19:00 Docusate Sodium (Colace) 100 mg Q12H PRN PO CONSTIPATION; Start 11/27/16 at 19: 00 Magnesium Hydroxide (Milk Of Mag) 30 ml DAILY PRN PO CONSTIPATION; Start at 19:00 Enoxaparin Sodium (Lovenox) 40 mg DAILY SC Last administered on 12/04/16 08:32 ; Admin Dose 40 MG; Start 11/28/16 at 09:00 Bisacodyl (Dulcolax) 10 mg DAILY PRN PO CONSTIPATION; Start 11/27/16 at 19:00 Cholecalciferol (Vitamin D) 2,000 unit DAILY PO Last administered on 12/04/16 08:28; Admin Dose 2,000 UNIT; Start 11/28/16 at 09:00 Clonazepam (Klonopin) 1 mg Q8H PRN PO ANXIETY Last administered on 11/27/16 22 :59; Admin Dose 1 MG; Start 11/27/16 at 19:00 Clonazepam (Klonopin) 1 mg TID PO Last administered on 12/04/16 12:02; Admin Dose 1 MG; Start 11/27/16 at 21:00 Doxazosin Mesylate (Cardura) 2 mg DAILY PO Last administered on 12/04/16 08:28 ; Admin Dose 2 MG; Start 11/28/16 at 09:00 Levothyroxine Sodium (Synthroid) 100 mcg DAILY@06 PO Last administered on 05:06; Admin Dose 100 MCG; Start 11/28/16 at 06:00 Methadone HCl (Methadone) 10 mg QID PO Last administered on 12/04/16 12:02; Admin Dose 10 MG; Start 11/27/16 at 21:00 Pentoxifylline (Trental) 400 mg TID PO Last administered on 12/04/16 12:02; Admin Dose 400 MG; Start 11/27/16 at 21:00 Zolpidem Tartrate (Ambien) 10 mg HS PRN PO insominia Last administered on 22:07; Admin Dose 10 MG; Start 11/27/16 at 19:00 Atorvastatin Calcium (Lipitor) 10 mg DAILY PO Last administered on 12/04/16 08: 27; Admin Dose 10 MG; Start 11/28/16 at 09:00 Miscellaneous Information 1 ea NOTE XX ; Start 11/27/16 at 19:00 Glucose (Glutose) 15 gm Q15M PRN PO DECREASED GLUCOSE; Start 11/27/16 at 19:00 Glucose (Glutose) 22.5 gm Q15M PRN PO DECREASED GLUCOSE; Start 11/27/16 at 19: 00 Dextrose (D50w Syringe) 25 ml Q15M PRN IV DECREASED GLUCOSE; Start 11/27/16 at 19:00 Dextrose (D50w Syringe) 50 ml Q15M PRN IV DECREASED GLUCOSE; Start 11/27/16 at 19:00 Glucagon (Glucagen) 1 mg Q15M PRN IM DECREASED GLUCOSE; Start 11/27/16 at 19:00 Glucose (Glutose) 15 gm Q15M PRN BUCCAL DECREASED GLUCOSE; Start 11/27/16 at 19 :00 Diagnostic Test (Pha) (Accu-Chek) 1 ea 02 XX ; Start 11/30/16 at 02:00 Silver Sulfadiazine 1 applic 1 applic DAILY TOP Last administered on 12/03/16 09:03; Admin Dose 1 APPLIC; Start 12/02/16 at 09:00 Vancomycin HCl (Vancocin) 250 ml @ 125 mls/hr Q12H IVPB Last administered on 11:58; Admin Dose 125 MLS/HR; Start 12/02/16 at 11:00 Lactobacillus Acidophilus/ Rhamnosus (Culturelle) 1 cap BID PO Last administered on 12/04/16 08:26; Admin Dose 1 CAP; Start 12/02/16 at 14:00 Famotidine (Pepcid) 20 mg DAILY PO Last administered on 12/04/16 08:26; Admin Dose 20 MG; Start 12/02/16 at 14:00 Nicotine 1 patch 1 patch DAILY TRANSDERM ; Start 12/02/16 at 14:00 Ceftriaxone Sodium (Rocephin) 50 ml @ 100 mls/hr Q24H IVPB Last administered on 12/04/16 01:20; Admin Dose 100 MLS/HR; Start 12/03/16 at 00:00; Stop 12/14/16 at 00:00 Insulin Glargine (Lantus) 35 unit HS SC Last administered on 12/03/16 20:50; Admin Dose 35 UNIT; Start 12/03/16 at 21:00 Collagenase (Santyl) 1 applic DAILY TOP ; Start 12/03/16 at 12:00 PALOMO OWENS NP Dec 04, 2016 14:06
[2016-12-04] MEDS: SILVER SULFADIAZINE 1% 25 GM CR TOP SCH (14:52)
[2016-12-04] MEDS: COLLAGENASE 30 GM TUBE TOP SCH (14:52)
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
--- NOTE | 2016-12-04 15:21 | PDOCDIS ---
Discharge Instructions DIAGNOSIS Discharge Diagnosis Cellulitis CONDITION Patient Condition: Stable HOME CARE INSTRUCTIONS: Special Diet: CARB CONTROL DIET ACTIVITY: Activity Restrictions: Slowly Increase Activity Activity Restrictions Comment: Nonweightbearing FOLLOW UP/APPOINTMENTS Follow-up Plan Appointment primary [address] Joi Mayo with [facility] wound care clinic next week Dr. Gunn 2 weeks ELIO SALCIDO MD Dec 04, 2016 15:21
[2016-12-04] MEDS ORDERED: ACET325T40 PO (15:23)
[2016-12-04] MEDS ORDERED: CIPR500T4 PO (15:23)
[2016-12-04] MEDS ORDERED: SAN30GM TOP (15:23)
[2016-12-04] MEDS ORDERED: Nicotine (14 Mg/24 Hr) TRANSDERM (15:23)
[2016-12-04] MEDS ORDERED: LACT1CAP57 PO (15:23)
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
[2016-12-04] MEDS: CIPROFLOXACIN 500 MG TAB PO SCH (17:13)
[2016-12-04 20:37] VITALS: BP 120/60; RESP 19
[2016-12-04] MEDS: INSULIN GLARGINE [LANtus] 3 ML PEN SC SCH (21:06)
--- NOTE | 2016-12-04 21:10 | RADRPT ---
PROCEDURE: MR Foot. CLINICAL INDICATION: Soft tissue defect and right foot remnant, with amputations involving the firs t through fifth rays. TECHNIQUE: Noncontrast MRI examination of the right foot, with axial, sagittal and coronal reformat nandini images. T1-weighted and STIR sequences were employed. COMPARISON: Plain film examination of the right foot dated 11/27/2016. FINDINGS: Amputation of the right foot at the first tarsometatarsal joints and at the proximal second through fifth metatarsals. No abnormal signal seen in the osseous structures of the right foot remnant to s uggest osteomyelitis. Soft tissue defect is seen at the plantar aspect of the medial right foot remn ant. There is no definite fistulous connection between the skin and the periosteum of the right tresa t remnant, although, a contrast enhanced examination would be more sensitive and specific. Region o f soft tissue defect measures about 27 x 27 mm and is about 10 mm in depth. Edema seen over the right foot. There is a 9 mm soft tissue lesion at the mid plantar aspect of the right foot, otherwise nonspecific. Contrast enhanced MRI examination may be of further use if clin ically required. IMPRESSION: No evident osteomyelitis in the right foot remnant. RPTAT: [facility] Physician hBavin Date Time Electronically viewed and signed by Physician Bhavin on 12/04/2016 21:09 RS/
[2016-12-05] MEDS: HYDROCODONE/APAP (5/325) TAB PO PRN (01:52)
[2016-12-05 02:09] VITALS: BP 132/63; RESP 19
[2016-12-05] MEDS: ACCU-CHEK XX SCH (02:12)
[2016-12-05] MEDS: LEVOTHYROXINE 100 MCG TAB PO SCH (06:07)
[2016-12-05] MEDS: CIPROFLOXACIN 500 MG TAB PO SCH (06:07)
[2016-12-05] MEDS: INSULIN ASPART [NOVOLOG] 3 ML PEN SC SCH ×2 (07:35→08:00)
[2016-12-05 08:00] VITALS: BP 131/67; RESP 20
[2016-12-05] MEDS: METHADONE 10 MG TAB PO SCH (09:14)
--- NOTE | 2016-12-05 12:50 | RADRPT ---
PROCEDURE: US bilateral lower extremity arteries. CLINICAL INDICATION: Bilateral leg pain. Right foot amputation and left below-knee amputation. Low er extremity ulcer. TECHNIQUE: Multiple longitudinal and transverse images of the bilateral lower extremity arteries w ere obtained with sloan scale, pulsed Doppler, and color Doppler imaging. COMPARISON: No prior studies are available for comparison. FINDINGS: Right MIXER OPERATOR RAW SALT:122 cm/sec PSFA:95 cm/sec MSFA:74 cm/sec DSFA:60 cm/sec POP:46 cm/sec XEROX MACHINE OPERATOR:58 cm/sec DPA:65 cm/sec Left MIXER OPERATOR RAW SALT:81 cm/sec PSFA:142 cm/sec MSFA:69 cm/sec DSFA:55 cm/sec POP:37 cm/sec On the right side, there is normal triphasic flow in the common femoral artery and normal biphasic f low in the proximal superficial femoral artery. Monophasic flow is present in the mid right superfi cial femoral artery and distal to this. On the left side, there is biphasic flow throughout. IMPRESSION: 1. Abnormal flow as described above consistent with significant stenosis in the right proximal to m id superficial femoral artery. RPTAT: QQ .Rigo Patel MD, MD Date Time Electronically viewed and signed by .Rigo Patel MD, on 12/05/2016 12:50 .R/
== END 2016-12-05 09:15 | disposition home health service (06) | DRG 565 ==
LOC: PP2 15:47
PROVIDERS: ADMIT Internal Medicine; ATTEND Internal Medicine
PROC: 0Y9M3ZZ Drainage of Right Foot, Percutaneous Approach (ICD-10-PCS; principal; 2016-12-01)
DX: T87.43 Infection of amputation stump, right lower extremity (principal); L03.115 Cellulitis of right lower limb; E11.51 Type 2 diabetes mellitus with diabetic peripheral angiopathy without gangrene; E11.622 Type 2 diabetes mellitus with other skin ulcer; F11.20 Opioid dependence, uncomplicated; E11.65 Type 2 diabetes mellitus with hyperglycemia; L02.611 Cutaneous abscess of right foot; L97.512 Non-pressure chronic ulcer of other part of right foot with fat layer exposed; I10 Essential (primary) hypertension; F17.200 Nicotine dependence, unspecified, uncomplicated; G54.7 Phantom limb syndrome without pain; E78.5 Hyperlipidemia, unspecified; K21.9 Gastro-esophageal reflux disease without esophagitis; G89.4 Chronic pain syndrome; B96.1 Klebsiella pneumoniae [K. pneumoniae] as the cause of diseases classified elsewhere; Z79.4 Long term (current) use of insulin; Z89.431 Acquired absence of right foot; Z89.512 Acquired absence of left leg below knee; Z99.3 Dependence on wheelchair
CPT/HCPCS: 70200; 73630; 73718; 80048; 80053; 80202; 82565; 82962; 83036; 83735; 84100; 84520; 85025; 85610; 85651; 85730; 87081; 93922; J0690; J0696; J1650; J1815; J3370; J7040; J7050